=== PATIENT | female | born 1950 | race Caucasian/White ===

== ENCOUNTER → 2016-10-21 | Outpatient (CLI) | payer MEDICARE, OTHER ==
--- NOTE | 2016-10-22 03:56 | REP ---
Clinical: Acute on chronic back pain. Technique: AP, lateral, bilateral oblique, and coned-down views. Findings: Chronic dextroconvex scoliosis and advanced degenerative disc osteophyte complexes are noted predominately along the concave side of the lumbar spine with osteophytosis, endplate sclerosis and disc space narrowing. No obvious acute fracture / compression injury. Impression: Chronic dextroconvex scoliosis and advanced multilevel degenerative changes. Signed by Nabor Carrillo MD 10/22/2016 03:47 A
== END ==
LOC: M LRY 15:17
PROVIDERS: ATTEND Family Medicine
DX: M41.86 Other forms of scoliosis, lumbar region (principal); M51.86 Other intervertebral disc disorders, lumbar region; Z23 Encounter for immunization
CPT/HCPCS: 72110; 90670; 90686; G0008; G0009; G0463

== ENCOUNTER → 2016-10-24 | Outpatient (REF) | payer MEDICARE, OTHER ==
[2016-10-24 19:47] LABS: ANION GAP 10 MEQ/L (8-16); BLOOD UREA NITROGEN 14 MG/DL (7-18); CALCIUM LEVEL 9.5 MG/DL (8.8-10.2); CARBON DIOXIDE LEVEL 25 MEQ/L (21-32); CHLORIDE LEVEL 108 MEQ/L (98-107); CHOLESTEROL LEVEL 155 MG/DL (<200); CREATININE FOR GFR 0.86 MG/DL (0.55-1.02); FREE T4 1.33 NG/DL (0.76-1.46); GLOMERULAR FILTRATION RATE > 60.0 (>45); GLUCOSE, FASTING 98 MG/DL (80-110); POTASSIUM SERUM 4.4 MEQ/L (3.5-5.1); SODIUM LEVEL 143 MEQ/L (136-145); TRIGLYCERIDES LEVEL 69 MG/DL (<150)
== END ==
LOC: M SFHCLERA 09:04
PROVIDERS: ATTEND Family Medicine
DX: E11.9 Type 2 diabetes mellitus without complications (principal); E03.9 Hypothyroidism, unspecified; E78.00 Pure hypercholesterolemia, unspecified

== ENCOUNTER → 2017-04-15 | Outpatient (CLI) | payer MEDICARE, OTHER ==
--- NOTE | 2017-04-15 13:41 | REPMRS ---
Patient History The patient states she had a clinical breast exam in April 2017. The patient states she had a clinical breast exam in April 2017.Patient is postmenopausal. Family history of colorectal cancer in father at age 86 and breast cancer in mother at age 55. Benign core biopsy of the left breast. Took hormonal contraceptives for 4 years. Digital Mammo Screening Bilat: April 15, 2017 - Exam #: [id number] Bilateral CC and MLO view(s) were taken. Technologist: Radha Archibald, Technologist Prior study comparison: March 18, 2016, digital woman screen mammo, performed at [facility]. March 27, 2014, bilateral bilat screen digital mammo, performed at [facility] ([facility]). March 14, 2013, bilateral bilat screen digital mammo, performed at [facility] ([facility]). FINDINGS: There are scattered fibroglandular densities. There is a biopsy marker clip in the left breast again noted unchanged. There has been no change in the appearance of the mammogram from the prior studies. There is a mild amount of scattered fibroglandular density which is fairly symmetric. There is no interval development of dominant mass, architectural distortion, or clustered microcalcification suggestive of malignancy. ASSESSMENT: BI-RADS/ACR category 2 mammogram. Benign finding(s). Recommendation Routine screening mammogram in 1 year (for women over age 40). This mammogram was interpreted with the aid of an FDA-approved computer-aided dectection system. Electronically Signed By: Reza Bright MD 04/15/17 [id number]
== END ==
LOC: M RAD 11:57
PROVIDERS: ATTEND Obstetrics & Gynecology
DX: Z12.31 Encounter for screening mammogram for malignant neoplasm of breast (principal)

== ENCOUNTER → 2017-04-29 | Outpatient (CLI) | payer MEDICARE, OTHER ==
--- NOTE | 2017-05-13 09:55 | DEXA ---
AP SPINE L1 - L4 1.249 0.4 2.0 LT FEMUR TOTAL 0.712 -2.3 -1.1 RT FEMUR TOTAL 0.780 -1.8 -0.6 TOTAL BODY TOTAL OTHER % COMMENTS: Normal bone densitometry of the spine. There is low bone density of the right hip. There is osteoporosis of the left hip. The density of the spine has increased 13.0% since the initial exam on 08/2006. The spine density has increased 1.1% since the most recent exam on 03/2014. The density of the left hip has decreased 9.4% since the initial exam on 08/2006. The density of the left hip has decreased 7.9% since the most recent exam on 2013. The density of the right hip has decreased 5.0% since initial exam on 08/2006. The density of the right hip has increased 3.4% since the most recent exam on 2013. FOLLOW-UP: Recommendation for the next bone density exam: 2 years. ERIK
== END ==
LOC: M WHC 09:01
PROVIDERS: ATTEND Obstetrics & Gynecology
DX: M84.80 Other disorders of continuity of bone, unspecified site (principal); N95.9 Unspecified menopausal and perimenopausal disorder; M81.0 Age-related osteoporosis without current pathological fracture

== ENCOUNTER → 2017-09-13 | Outpatient (REF) | payer MEDICARE, OTHER ==
[2017-09-13 17:23] LABS: ALBUMIN 4.3 GM/DL (3.2-5.2); ALBUMIN/GLOBULIN RATIO 1.48 (1.00-1.93); ALKALINE PHOSPHATASE 50 U/L (45-117); ALT/SGPT 15 U/L (12-78); ANION GAP 6 MEQ/L (8-16); AST/SGOT 11 U/L (7-37); BILIRUBIN,TOTAL 0.4 MG/DL (0.2-1.0); BLOOD UREA NITROGEN 18 MG/DL (7-18); CALCIUM LEVEL 9.2 MG/DL (8.8-10.2); CARBON DIOXIDE LEVEL 27 MEQ/L (21-32); CHLORIDE LEVEL 109 MEQ/L (98-107); CREATININE FOR GFR 0.77 MG/DL (0.55-1.30); GLOMERULAR FILTRATION RATE > 60.0 (>45); GLUCOSE, FASTING 88 MG/DL (70-100); POTASSIUM SERUM 4.5 MEQ/L (3.5-5.1); SODIUM LEVEL 142 MEQ/L (136-145); THYROID STIMULATING HORMONE 0.857 uIU/ML (0.358-3.740); TOTAL PROTEIN 7.2 GM/DL (6.4-8.2)
[2017-09-13 19:43] LABS: MALB URINE SIEMENS 22.9 MG/L; MAU/CREAT RATIO 60.2 MCG/MG (0.0-30.0)
[2017-09-13 21:33] LABS: ESTIMATED AVERAGE GLUCOSE 157 MG/DL (60-110); HEMOGLOBIN A1c 7.1 %
== END ==
LOC: M SFHCLERA 12:17
DX: E03.9 Hypothyroidism, unspecified (principal); E11.9 Type 2 diabetes mellitus without complications; I10 Essential (primary) hypertension; Z23 Encounter for immunization
CPT/HCPCS: 84443

== ENCOUNTER → 2017-10-14 | Outpatient (CLI) | payer MEDICARE, OTHER | LOC: M LRY 13:23 | DX: J06.9 Acute upper respiratory infection, unspecified (principal) ==

== ENCOUNTER → 2017-10-19 | Outpatient (CLI) | payer MEDICARE, OTHER | LOC: M RAD 07:05 | DX: R93.6 Abnormal findings on diagnostic imaging of limbs (principal) | CPT/HCPCS: 93971 ==

== ENCOUNTER → 2018-08-27 | Outpatient (REF) | payer MEDICARE, OTHER ==
[2018-08-27 17:24] LABS: HEMOGLOBIN A1c 6.6 %
== END ==
LOC: M SFHCLERA 09:26
PROVIDERS: ATTEND Family Medicine
DX: E11.9 Type 2 diabetes mellitus without complications (principal)

== ENCOUNTER 2018-11-08 09:20 | Day surgery (SDC) | payer MEDICARE, OTHER ==
[~2018-11-08] VITALS: Ht 156.8 cm; Wt 52.6 kg
[~2018-11-08 09:20] MED LIST: ASPI81TA85 PO; FENO145T13 PO; LISI-542 PO; METF10004 PO; SIMV40TA2 PO; SYNT100T PO
[2018-11-08] MEDS ORDERED: NS 1,000 ML IV ONE (10:45)
[2018-11-08] MEDS ORDERED: LIDOCAINE 2% INJ 100 MG/5 ML SDV (FOR ANES.) As Ordered ONE (11:37)
[2018-11-08] MEDS ORDERED: PROPOFOL 200 MG/20 ML VIAL As Ordered ONE ×2 (11:37→11:47)
--- NOTE | 2018-11-08 11:57 | ROOR ---
Patient Name: Trista Garcia Procedure Date: 11/08/2018 11:25 AM Date of : 1950 Age: 68 Room: [facility] Gender: Female Note Status: Finalized Procedure: Colonoscopy Indications: High risk colon cancer surveillance: Personal history of colonic polyps, Last colonoscopy: October 2013 Providers: Ervin SIU MD Referring MD: Pretty MACK MD Requesting Provider: Medicines: Monitored Anesthesia Care Complications: No immediate complications. Procedure: Pre-Anesthesia Assessment: - The heart rate, respiratory rate, oxygen saturations, blood pressure, adequacy of pulmonary ventilation, and response to care were monitored throughout the procedure. The Colonoscope was introduced through the anus and advanced to the terminal ileum, with identification of the appendiceal orifice and IC valve. The colonoscopy was performed without difficulty. The patient tolerated the procedure well. The quality of the bowel preparation was good. Findings: The perianal and digital rectal examinations were normal. An ulcerated non-obstructing small mass was found in the proximal ascending colon. The mass measured one cm in length. In addition, its diameter measured ten mm. This was biopsied with a cold forceps for histology. The exam was otherwise without abnormality on direct and retroflexion views. Impression: - A 1 cm flat, centrally depressed ulcerated mass/polyp, in the proximal ascending colon (within 2 cm of ileocecal valve). Biopsied. - The examination was otherwise normal on direct and retroflexion views. Recommendation: - Await pathology results. - Telephone endoscopist for pathology results in 2 weeks. - If the pathology report reveals adenomatous/malignant tissue, then refer to a surgeon. - If the pathology report reveals no adenomatous tissue, then repeat the colonoscopy to check healing in 4 months. Ervin Siu MD Ervin SIU MD 11/08/2018 11:57:27 AM Electronically signed by Ervin SIU MD Number of Addenda: 0 Note Initiated On: 11/08/2018 11:25 AM Estimated Blood Loss: Estimated blood loss: none.
[2018-11-08 12:20] VITALS: BP 140/76
== END 2018-11-08 12:29 | disposition home or self-care (01) ==
LOC: M OPP 09:20
PROVIDERS: ATTEND Internal Medicine Gastroenterology
DX: C18.2 Malignant neoplasm of ascending colon (principal); Z86.010 Personal history of colon polyps

== ENCOUNTER → 2018-11-17 | Outpatient (REF) | payer MEDICARE, OTHER ==
[~2018-11-17] MED LIST changes: +PERCOCET PO
[2018-11-17 11:58] LABS: CHOLESTEROL LEVEL 154 MG/DL (<200); CHOLESTEROL RISK RATIO 2.905 (<5); FREE T4 1.39 NG/DL (0.76-1.46); HDL CHOLESTEROL 53 MG/DL (>40); LDL CHOLESTEROL 84 MG/DL (<100); NON-HDL-C 101 MG/DL; TRIGLYCERIDES LEVEL 86 MG/DL (<150)
[2018-11-17 12:24] LABS: HEMOGLOBIN A1c 6.5 %
[2018-11-17 12:25] LABS: CREATININE, URINE 84.5 MG/DL; MALB URINE SIEMENS 22.4 MG/L; MAU/CREAT RATIO 26.5 MCG/MG (0.0-30.0)
[2018-11-18 10:15] LABS: BLOOD UREA NITROGEN 15 MG/DL (7-18); CALCIUM LEVEL 9.3 MG/DL (8.8-10.2); CARBON DIOXIDE LEVEL 28 MEQ/L (21-32); CHLORIDE LEVEL 109 MEQ/L (98-107); CREATININE FOR GFR 0.78 MG/DL (0.55-1.30); GLOMERULAR FILTRATION RATE > 60.0 (>45); GLUCOSE, FASTING 94 MG/DL (70-100); POTASSIUM SERUM 4.7 MEQ/L (3.5-5.1); SODIUM LEVEL 143 MEQ/L (136-145)
== END ==
LOC: M SFHCLERA 07:52
PROVIDERS: ATTEND Family Medicine
DX: E03.9 Hypothyroidism, unspecified (principal); E11.9 Type 2 diabetes mellitus without complications
CPT/HCPCS: 80048; 80061; 82043; 83036; 84439; 84443; 90471; 90732; 93005; G0463

== ENCOUNTER → 2018-11-19 | Outpatient (CLI) | payer MEDICARE, OTHER ==
[~2018-11-19] MED LIST changes: -PERCOCET PO
[2018-11-19 12:32] LABS: BLOOD UREA NITROGEN 18 MG/DL (7-18); GLOMERULAR FILTRATION RATE > 60.0 (>45)
== END ==
LOC: M LRY 09:50
PROVIDERS: ATTEND Surgery
DX: C18.2 Malignant neoplasm of ascending colon (principal)

== ENCOUNTER → 2018-11-22 | Outpatient (CLI) | payer MEDICARE, OTHER ==
[~2018-11-22] MED LIST changes: +GASTROGRAFIN SOLUTION 30ML (Q9963) As Ordered ONE; +ISOVUE-370 76% 100ML VIAL (Q9967) As Ordered ONE
--- NOTE | 2018-11-23 09:42 | REP ---
CT of the abdomen pelvis without and with IV contrast, and with bowel contrast: After IV contrast scanning is performed initially during the portal venous phase of enhancement and again during the delayed equilibrium phase of enhancement. There are no comparison studies. The visualized lung perez are unremarkable. The hepatic parenchyma is homogeneous on all phases of the study. No hepatic metastases are identified. There are surgical clips in the gallbladder fossa. The pancreas, spleen, adrenals, kidneys and abdominal aorta are unremarkable. There is no periaortic adenopathy or mass. There is no mesenteric adenopathy or ascites. There is no bowel distension. There is no mass, ascites or adenopathy. 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 Pelvis: The patient reportedly has an appendectomy. The pelvic bowel loops are unremarkable. The bladder is unremarkable. Uterus and adnexa are unremarkable. There is no pelvic adenopathy or ascites. Impression: Cholecystectomy and appendectomy. No adenopathy, mass or ascites. 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 Otherwise, essentially negative CT of the abdomen and pelvis. Electronically Signed by Renato Kumar MD 11/23/2018 09:34 A
== END ==
LOC: M RAD 14:50
PROVIDERS: ATTEND Surgery
DX: C18.9 Malignant neoplasm of colon, unspecified (principal)
CPT/HCPCS: 74178; Q9963; Q9967

== ENCOUNTER 2018-11-25 06:06 | Inpatient (IN) | payer MEDICARE, OTHER ==
[2018-11-25] VITALS (8 sets, daily range): BP systolic 101–135; BP diastolic 55–68
[~2018-11-25] VITALS: Ht 157.5 cm; Wt 119.5 kg
[~2018-11-25 06:06] MED LIST changes: -GASTROGRAFIN SOLUTION 30ML (Q9963) As Ordered ONE; -ISOVUE-370 76% 100ML VIAL (Q9967) As Ordered ONE
[2018-11-25] MEDS ORDERED: fentaNYL 100 MCG/2 ML INJECTION (J3010) As Ordered ONE (06:40)
[2018-11-25] MEDS ORDERED: LIDOCAINE 2% INJ 100 MG/5 ML SDV (FOR ANES.) As Ordered ONE ×2 (06:40→06:41)
[2018-11-25] MEDS ORDERED: PROPOFOL 200 MG/20 ML VIAL As Ordered ONE ×2 (06:40→09:38)
[2018-11-25] MEDS ORDERED: MIDAZOLAM INJ 5 MG/ML VIAL (J2250) As Ordered ONE (06:40)
[2018-11-25] MEDS ORDERED: dexameTHASONE 4 MG/ML 1ML VIAL (J1100) As Ordered ONE (06:41)
[2018-11-25] MEDS ORDERED: SUGAMMADEX SODIUM 500 MG/5 ML VIAL (BRIDION) As Ordered ONE (06:41)
[2018-11-25] MEDS ORDERED: ACETAMINOPHEN 1000MG 100ML IV BTL (OFIRMEV) (J0131 PER 10MG) As Ordered ONE (06:41)
[2018-11-25] MEDS ORDERED: KETOROLAC 60 MG/2 ML VIAL (J1885) As Ordered ONE (06:41)
[2018-11-25] MEDS ORDERED: GLYCOPYRROLATE INJ 0.2 MG/ML 2 ML VIAL As Ordered ONE (06:41)
[2018-11-25] MEDS ORDERED: ONDANSETRON 4MG/2ML VIAL (J2405) As Ordered ONE (06:41)
[2018-11-25] MEDS ORDERED: KETAMINE HCL 200 MG/20 ML VIAL As Ordered ONE (06:42)
[2018-11-25] MEDS ORDERED: METHOCARBAMOL 1,000 MG/10 ML VIAL (J2800) As Ordered ONE (06:44)
[2018-11-25] MEDS ORDERED: ROCURONIUM BROMIDE 50 MG/5 ML VIAL As Ordered ONE (06:48)
[2018-11-25] MEDS ORDERED: cefoTEtan INJ 1GM VIAL (S0074 PER 500MG) As Ordered ONE (06:51)
[2018-11-25] MEDS ORDERED: CEFOTETAN DISODIUM IV ONE (07:00)
[2018-11-25] MEDS ORDERED: LR 1,000 ML IV ONE (07:00)
[2018-11-25] MEDS ORDERED: D5W IV ONE (07:00)
[2018-11-25] MEDS ORDERED: FAMOTIDINE IV BAG 20 MG in APPROPRIATE DILUENT 1 EA IV ONE (07:10)
[2018-11-25] MEDS ORDERED: BUPIVACAINE/EPIN 0.25% 30 ML VIAL As Ordered ONE (07:13)
[2018-11-25] MEDS ORDERED: ONDANSETRON 4MG/2ML VIAL (J2405) IV PRN ×2 (11:15→12:00)
[2018-11-25] MEDS ORDERED: ACETAMINOPHEN TAB 650MG DOSE (2X325MG) PO PRN (11:15)
[2018-11-25] MEDS ORDERED: MORPHINE 4 MG/ML 1ML VIAL/SYRINGE (J2270) IV PRN ×2 (11:15→11:30)
[2018-11-25] MEDS ORDERED: NORCO, ANEXSIA 5/325MG TABLET (HYDROcodone/ACETAMINOPHEN) PO PRN ×2 (11:15→11:30)
[2018-11-25] MEDS: KCL 20MEQ IN D5/0.45NS 1000ML 1,000 ML IV SCH ×2 (11:20→18:09)
[2018-11-25] MEDS: fentaNYL 100 MCG/2 ML INJECTION (J3010) IV PRN ×2 (11:51→12:30)
[2018-11-25] MEDS ORDERED: PHENYLephrine HCL 500 MCG/5 ML (100MCG/ML) SYRINGE (J2370) IV PRN (12:00)
[2018-11-25] MEDS ORDERED: LR 500 ML IV ONE (12:00)
[2018-11-25] MEDS ORDERED: oxyCODONE 5MG TAB PO PRN (13:00)
[2018-11-25] MEDS ORDERED: PERCOCET 5MG/325MG TAB PO ONE (14:30)
[2018-11-25] MEDS: FENOFIBRATE 145 MG TAB (TRICOR) PO SCH (14:53)
[2018-11-25] MEDS: PANTOPRAZOLE 40MG TAB (PROTONIX) PO SCH (14:53)
[2018-11-25] MEDS: SENOKOT S TAB PO SCH ×2 (14:53→21:58)
[2018-11-25] MEDS: SIMVASTATIN 40 MG TAB PO SCH (14:53)
[2018-11-25] MEDS: LISINOPRIL 5 MG TAB PO SCH (14:54)
[2018-11-25] MEDS: LEVOTHYROXINE 100MCG TABLET (0.1MG) PO SCH (14:54)
[2018-11-25] MEDS: KETOROLAC 30 MG/ML VIAL (J1885) IV PRN (18:10)
[2018-11-25] MEDS: ENOXAPARIN 40 MG/0.4 ML SYRINGE (J1650) SC SCH (21:58)
[2018-11-26] MEDS: KCL 20MEQ IN D5/0.45NS 1000ML 1,000 ML IV SCH ×2 (01:34→09:48)
[2018-11-26] MEDS: PERCOCET 5MG/325MG TAB PO PRN ×2 (01:34→11:23)
[2018-11-26 02:00] VITALS: BP 106/53
[2018-11-26] MEDS: LEVOTHYROXINE 100MCG TABLET (0.1MG) PO SCH (05:42)
[2018-11-26] MEDS: KETOROLAC 30 MG/ML VIAL (J1885) IV PRN ×2 (05:43→21:11)
[2018-11-26 06:00] VITALS: BP 101/53
[2018-11-26 06:40] LABS: HEMATOCRIT 33.4 % (36.0-47.0); HEMOGLOBIN 11.1 g/dl (12.0-15.5); MEAN CORPUSCULAR HEMOGLOBIN 30.5 pg (27.0-33.0); MEAN CORPUSCULAR HGB CONC 33.2 g/dl (32.0-36.5); MEAN CORPUSCULAR VOLUME 91.8 fl (80.0-96.0); PLATELET COUNT, AUTOMATED 277 10^3/uL (150-450); RED BLOOD COUNT 3.64 10^6/uL (4.00-5.40)
[2018-11-26 07:07] LABS: BLOOD UREA NITROGEN 8 MG/DL (7-18); CARBON DIOXIDE LEVEL 24 MEQ/L (21-32); CHLORIDE LEVEL 107 MEQ/L (98-107); CREATININE FOR GFR 0.74 MG/DL (0.55-1.30); GLOMERULAR FILTRATION RATE > 60.0 (>45); GLUCOSE, FASTING 157 MG/DL (70-100); POTASSIUM SERUM 4.7 MEQ/L (3.5-5.1); SODIUM LEVEL 137 MEQ/L (136-145)
[2018-11-26] MEDS: metFORMIN (GLUCOPHAGE) 1000 MG TABLET PO SCH ×2 (08:12→17:40)
[2018-11-26] MEDS: SIMVASTATIN 40 MG TAB PO SCH (08:12)
[2018-11-26] MEDS: PANTOPRAZOLE 40MG TAB (PROTONIX) PO SCH (08:12)
[2018-11-26] MEDS: FENOFIBRATE 145 MG TAB (TRICOR) PO SCH (08:12)
[2018-11-26] MEDS: SENOKOT S TAB PO SCH ×2 (08:13→21:10)
[2018-11-26] MEDS: LISINOPRIL 5 MG TAB PO SCH (08:14)
[2018-11-26 10:00] VITALS: BP 106/62
--- NOTE | 2018-11-26 11:05 | RO ---
DATE OF PROCEDURE: 11/25/2018 PREOPERATIVE DIAGNOSIS: Right colon cancer. POSTOPERATIVE DIAGNOSIS: Right colon cancer. PROCEDURE: Robotic-assisted right hemicolectomy. SURGEON: Dr. Renato Underwood BINDERY CUTTER OPERATOR: Loren Garrison ANESTHESIA: General. ESTIMATED BLOOD LOSS: 15 mL. COMPLICATIONS: None. INDICATIONS FOR PROCEDURE: The patient is a 68-year-old female, presents with a right colon mass that was biopsied positive for adenocarcinoma by GI. Recommendation was to proceed with robotic resection. Risks and benefits of procedure not limited to but including bleeding, infection, hernia formation, damage to surrounding structures, need for further surgery were discussed in detail with the patient. Informed consent was obtained, procedure was planned. DESCRIPTION OF PROCEDURE: The patient brought back to operating room seven, after sufficient sedation, a Oconnor catheter was placed. Next, the abdomen was sterilely prepped and draped. A time-out was then done to confirm proper patient, proper procedure. Next, an 8 mm incision was made in the left upper quadrant, Veress needle was inserted, and the abdomen was insufflated to 15 mmHg. Next, an 8 mm robotic Optiview port was used to gain access to the abdomen. Once the abdomen was entered, another 8 mm port was placed in the right lower quadrant, another 8 mm port in the left mid upper abdomen, and another 12 mm robotic port inferior to the umbilicus in the midline. Once all of these robotic ports were placed, the robot was connected to the ports. Next, from the console, starting inferiorly at the cecum, the cecum was held superiorly. The peritoneal reflection inferior to the cecum and then laterally along the right abdomen was all taken down using a combination of blunt and sharp dissection. Once that was completed, I continued the dissection up around the hepatic flexure in between the liver and the transverse colon. There were multiple adhesions directly onto the liver bed secondary to previous cholecystectomy. These were all taken down using sharp dissection with cautery. Once this was all completed and everything was mobilized, I was able to identify the duodenum. I mobilized the transverse colon inferiorly and gently dissected in between the duodenum and the transverse colon. Once this was completed, I found the terminal ileum, dissected through the mesentery of the terminal ileum. Once that was completed, stapled across the terminal ileum using a blue load on the 45 mm stapler. Next, I continued the dissection through the mesentery, from there superiorly, using the vessel sealer on the robot, I was able to go through the ileocolic vessels, continued the dissection up to the hepatic flexure. Once it was completed, used another two stapler loads to transect the transverse colon, just past the hepatic flexure. Once the specimen was completely dissected free and stapled off, the transverse colon, the terminal ileum and the specimen were all grabbed with laparoscopic graspers. The robot was then undocked. The 12 mm site was enlarged to about 4-5 cm to allow for removal of the specimen and then brought out the two ends of the colon and the terminal ileum, stapled them [id number] with a RAMIREZ 75 stapler. Once the anastomosis was completed, I over sewed the corners with #2-0 silk sutures, placed them to seal over the anastomosis, placed the bag inside the abdomen, placed a #19 Belgian Joss drain next to it, brought the Joss drain out through the most inferior port site, then closed the fascia using #1 PDS, reapproximated the subcutaneous tissues using #0 Vicryl, and then stapled the rest of the incisions, thus ending procedure. The patient tolerated the procedure well and was sent to recovery room in stable condition.
--- NOTE | 2018-11-26 11:43 | IPN ---
DATE: 11/26/2018 HISTORY: Patient is a patient of Dr. Washington who is now 1 day postop from a laparoscopic right hemicolectomy for a malignancy. She has generally done well following surgery. She is tolerating clear liquids well. She reports having some flatus. She has a Oconnor catheter in place, which is draining clear urine. She has a drain in her lower abdomen. She denies any nausea or vomiting. Vital signs show that she has been afebrile since surgery with the exception of a brief temperature of 100.2 at 1630 hours on the . Her pulse is in the 50s to low 80s. Her blood pressure is good. Intake and output shows that yesterday she had 4400 in with 1300 recorded out. Her drain is recorded as having 60 mL out yesterday. PHYSICAL EXAMINATION: The patient is lying quietly in the hospital bed. She is alert, oriented and appears fairly comfortable. She does complain of some high epigastric discomfort. Heart exam shows a regular rhythm. The lungs are clear. The abdomen shows fairly active bowel sounds and her dressings are dry. Her low midline drain has some serosanguineous fluid in the bulb. Laboratory studies this morning show a white count of 13,000, hemoglobin of 11, hematocrit of 33 and platelet count of 277,000. Her chemistry profile shows a sodium of 137, potassium 4.7, chloride 107, CO2 of 24, BUN of 80, creatinine 0.7 and a glucose of 157. IMPRESSION: The patient is doing very well postop day 1 from her laparoscopic right hemicolectomy. PLAN: We will remove her Oconnor catheter and saline lock her IV. Her sequential compression hose will be discontinued as she will maintain the support hose and the Lovenox. She is encouraged to be up out of bed ambulating today at least three times. Her diet will be advanced to regular.
[2018-11-26 14:00] VITALS: BP 120/63
[2018-11-26 18:00] VITALS: BP 116/53
[2018-11-26] MEDS: ENOXAPARIN 40 MG/0.4 ML SYRINGE (J1650) SC SCH (21:10)
[2018-11-26 22:00] VITALS: BP 135/61
[2018-11-27] MEDS: PERCOCET 5MG/325MG TAB PO PRN ×3 (04:00→20:26)
[2018-11-27] MEDS: LEVOTHYROXINE 100MCG TABLET (0.1MG) PO SCH (05:35)
[2018-11-27 06:00] VITALS: BP 109/60
[2018-11-27] MEDS ORDERED: IBUPROFEN 400 MG TAB PO PRN (08:45)
[2018-11-27] MEDS: metFORMIN (GLUCOPHAGE) 1000 MG TABLET PO SCH ×2 (08:49→17:50)
[2018-11-27] MEDS: SIMVASTATIN 40 MG TAB PO SCH (08:49)
[2018-11-27] MEDS: FENOFIBRATE 145 MG TAB (TRICOR) PO SCH (08:49)
[2018-11-27] MEDS: PANTOPRAZOLE 40MG TAB (PROTONIX) PO SCH (08:49)
[2018-11-27] MEDS: LISINOPRIL 5 MG TAB PO SCH (08:49)
[2018-11-27] MEDS: SENOKOT S TAB PO SCH ×2 (08:49→20:25)
[2018-11-27 14:00] VITALS: BP 121/59
[2018-11-27] MEDS: ENOXAPARIN 40 MG/0.4 ML SYRINGE (J1650) SC SCH (20:25)
--- NOTE | 2018-11-27 21:31 | IPN ---
DATE: 11/27/2018 HISTORY: The patient is now postoperative day #2 from a right hemicolectomy by Dr. Underwood. She has a drain in her lower midabdomen. She was advanced to a regular diet yesterday. She reports that she has had much flatus but no bowel movement as of yet. She indicates that she is voiding well. She denies any nausea or vomiting. Vital signs show that she has been afebrile over the past 24 hours. Her pulse and blood pressure are good. Intake and output shows that yesterday she had 1840 in recorded with 610 recorded out. Her drain yesterday had 235 mL of fluid. This morning her drain has 90 mL recorded out. PHYSICAL EXAMINATION: The patient is lying quietly in the hospital bed. She is alert and oriented. She is complaining of some discomfort actually in her back and neck, reporting that she feels stiff from lying in bed. Heart exam shows a regular rate and rhythm. The lungs are clear. The abdomen is flat. Her dressings are dry. The drain has some serosanguineous fluid in the bulb. She has active bowel sounds. IMPRESSION: The patient is doing well now postoperative day #2 from her laparoscopic right hemicolectomy. She is on a regular diet and tolerating it well but without any bowel function yet. PLAN: I will continue her drain for now given the amount of output. She will continue her regular diet and I encouraged her to be out of bed. She may be ready for discharge in the next 1-2 days.
[2018-11-27 22:00] VITALS: BP 125/61
[2018-11-28] MEDS: LEVOTHYROXINE 100MCG TABLET (0.1MG) PO SCH (05:38)
[2018-11-28 06:00] VITALS: BP 120/52
[2018-11-28 07:08] LABS: HEMATOCRIT 34.1 % (36.0-47.0); HEMOGLOBIN 11.3 g/dl (12.0-15.5); MEAN CORPUSCULAR HEMOGLOBIN 29.8 pg (27.0-33.0); MEAN CORPUSCULAR HGB CONC 33.1 g/dl (32.0-36.5); PLATELET COUNT, AUTOMATED 235 10^3/uL (150-450); RED BLOOD COUNT 3.79 10^6/uL (4.00-5.40); WHITE BLOOD COUNT 13.7 10^3/uL (4.0-10.0)
[2018-11-28 07:36] LABS: BLOOD UREA NITROGEN 9 MG/DL (7-18); CALCIUM LEVEL 8.5 MG/DL (8.8-10.2); CARBON DIOXIDE LEVEL 24 MEQ/L (21-32); CHLORIDE LEVEL 106 MEQ/L (98-107); CREATININE FOR GFR 0.65 MG/DL (0.55-1.30); GLOMERULAR FILTRATION RATE > 60.0 (>45); GLUCOSE, FASTING 94 MG/DL (70-100); POTASSIUM SERUM 3.3 MEQ/L (3.5-5.1); SODIUM LEVEL 138 MEQ/L (136-145)
[2018-11-28] MEDS ORDERED: POTASSIUM CHLORIDE 10 MEQ SR TABLET PO ONE (08:15)
[2018-11-28] MEDS: PANTOPRAZOLE 40MG TAB (PROTONIX) PO SCH (09:11)
[2018-11-28] MEDS: SENOKOT S TAB PO SCH (09:11)
[2018-11-28] MEDS: SIMVASTATIN 40 MG TAB PO SCH (09:11)
[2018-11-28] MEDS: FENOFIBRATE 145 MG TAB (TRICOR) PO SCH (09:11)
[2018-11-28] MEDS: metFORMIN (GLUCOPHAGE) 1000 MG TABLET PO SCH (09:12)
[2018-11-28 09:15] VITALS: BP 122/60
[2018-11-28] MEDS: LISINOPRIL 5 MG TAB PO SCH (09:15)
[2018-11-28] MEDS ORDERED: PERCOCET PO (11:31)
[2018-11-28] MEDS: PERCOCET 5MG/325MG TAB PO PRN (11:44)
--- NOTE | 2018-11-28 11:48 | IPN ---
DATE: 11/28/2018 SUBJECTIVE: The patient is seen at bedside. She states that she is passing a lot of flatus, however has not had a bowel movement. Her pain is not well-controlled. She had some nausea yesterday morning at breakfast, and had one episode of vomiting, however, was able to have crackers throughout yesterday afternoon. She states that she is still voiding well. Patient has been afebrile overnight and has had no acute events overnight. OBJECTIVE: PHYSICAL EXAMINATION VITALS: Temperature 96.5, pulse 87 and regular, respiratory rate 17, blood pressure 120/52, pulse ox is 91% on room air. GENERAL: The patient is awake, alert, laying quietly in bed. She is in no acute distress. HEART: Regular rate and rhythm. No murmurs, gallops or rubs. LUNGS: Clear to auscultation bilaterally. No wheezes, rhonchi or rales. ABDOMEN: Flat, incisions are dry and intact and without signs of infection. She has some serosanguineous fluid in the bulb of her Jonatan-Mcconnell (SIERRA) drain. The patient has positive bowel sounds. LABORATORY DATA: CBC: WBC 13.7, hemoglobin 11.3, hematocrit 34.1, platelets 235. Chemistry: Sodium 138, potassium 3.3, chloride 106, carbon dioxide 24, anion gap 8, BUN 9, creatinine 0.65, fasting glucose 94, calcium 8.5. IMPRESSION: The patient is doing well on posted postop day #3 from a laparoscopic right colectomy. She is on a regular diet, but has still had a bowel movements. She continues to pass flatus. PLAN: SIERRA drain has been removed. She may continue regular diet. She is encouraged to ambulate. We are still awaiting pathology. If she has a bowel movement today, she will be able to be discharged. My faculty preceptor for this patient encounter was physically present during the encounter and was fully available. All aspects of the patient interview, examination, medical decision making process, and medical care plan development were reviewed and approved by the faculty preceptor. The faculty preceptor is aware and concurs with the plan as stated in the body of this note and will attest to such by his/her co-signature.
== END 2018-11-28 13:30 | disposition home health service (06) | DRG 331 ==
LOC: M OR 06:06 → M MSPAV 13:32
PROVIDERS: ADMIT Surgery; ATTEND Surgery
PROC: 8E0W4CZ Robotic Assisted Procedure of Trunk Region, Percutaneous Endoscopic Approach (ICD-10-PCS; 2018-11-25)
PROC: 0DBK4ZZ Excision of Ascending Colon, Percutaneous Endoscopic Approach (ICD-10-PCS; principal; 2018-11-25 07:30)
DX: C18.2 Malignant neoplasm of ascending colon (principal); E11.9 Type 2 diabetes mellitus without complications; I10 Essential (primary) hypertension; E03.9 Hypothyroidism, unspecified; M85.80 Other specified disorders of bone density and structure, unspecified site; E78.5 Hyperlipidemia, unspecified; Z79.84 Long term (current) use of oral hypoglycemic drugs; Z79.899 Other long term (current) drug therapy; Z87.891 Personal history of nicotine dependence; Z88.5 Allergy status to narcotic agent

== ENCOUNTER → 2018-12-16 | Outpatient (CLI) | payer MEDICARE, OTHER ==
[~2018-12-16] MED LIST changes: +ISOVUE-370 76% 100ML VIAL (Q9967) As Ordered ONE; +PERCOCET PO
--- NOTE | 2018-12-16 11:08 | REP ---
REASON: History of colon carcinoma. No prior chest CTs for comparison. CONTRAST: 100 mL Isovue 370. There is no mediastinal or hilar adenopathy. There are no pleural or pericardial effusions. The imaged upper abdomen is within normal limits. The imaged osseous structures are within normal limits for the patient's age. Evaluation of the lung perez shows a peripherally calcifying, but centrally low density lesion in the right lower lobe medially measuring 1.2 cm. It appears relatively smoothly marginated. There is mild lung field hyperexpansion and there is cylindrical bronchiectasis throughout the lung perez. No spiculated parenchymal lesions are present. There is evidence of mild biapical pleuroparenchymal scarring. IMPRESSION: 1. Right lower lobe lung lesion as described above. Since it is peripherally calcified and smoothly marginated it is likely benign, however, if the patient has a diagnosis of adenocarcinoma of the mucinous type then that cancer has been known to cause calcific appearing metastasis. There is no revised Fleischner's Society criteria on the recommendation for followup of this type of lung lesion, however, given the patient's history I would recommend CT/PET at this time rather than tissue sampling. 2. Chronic lung field changes as described above. Electronically Signed by Elijah Ruffin DO 12/16/2018 02:41 P
== END ==
LOC: M RAD 08:53
PROVIDERS: ATTEND Internal Medicine Medical Oncology
DX: R91.8 Other nonspecific abnormal finding of lung field (principal); C18.9 Malignant neoplasm of colon, unspecified
CPT/HCPCS: 71260; Q9967

== ENCOUNTER → 2018-12-20 | Outpatient (CLI) | payer MEDICARE, OTHER ==
[~2018-12-20] MED LIST changes: +BUPIVACAINE HCL 0.5% 10 ML VIAL As Ordered ONE; -ISOVUE-370 76% 100ML VIAL (Q9967) As Ordered ONE; +LIDO2.5C15 TOP; +LIDOCAINE 2% MDV 20 ML VIAL As Ordered ONE; +ceFAZolin 1GM INJ (J0690 PER 500MG) As Ordered ONE
--- NOTE | 2018-12-20 14:12 | ROOPDOC ---
[facility] Report Of Operation Report of Operation DATE OF PROCEDURE: 12/20/2018 PREOPERATIVE DIAGNOSIS: Colon cancer requiring access for chemotherapy. POSTOPERATIVE DIAGNOSIS: Colon cancer requiring access for chemotherapy. PROCEDURE: Ultrasound guided right internal jugular vein cannulation. Fluoroscopic guided right internal jugular vein tunneled central venous catheter with subcutaneous port placement with placement of a power injectable [employer] [place] Power Port with 24 cm length catheter. SURGEON: Dr. Teri Cox M.D. THREAD MARKER: Salma Cho and Silvia Delgadillo ANESTHESIA: Local with 20 mL of 2% lidocaine mixed with 0.5% Marcaine. ANTIBIOTICS: Ancef 2 g FLUOROSCOPY TIME: 0.1 minutes. CONTRAST: None. ESTIMATED BLOOD LOSS: 15 mL. IV FLUID: 100 mL. COMPLICATIONS: None. DRAINS: None. SPECIMENS: None. IMPLANTS: Right internal jugular vein tunneled central venous catheter with subcutaneous port placement using a [employer] [place] Power Port which is power injectable. INDICATION: Patient is a 68-year-old female who underwent a right hemicolectomy due to right colon cancer and who now requires tunneled central venous catheter with subcutaneous tinnitus port placement for adjuvant chemotherapy. Patient will undergo a right tunneled central venous catheter placement with subcutaneous port. Procedure was described and explained to the patient in detail including drawing of pictures showing the procedure and anatomy associated with insertion of the tunneled central venous catheter was subcutaneous port. Risks, benefits, and alternative treatment options were discussed with the patient. Alternative treatment options included, but were not limited to, no intervention. Benefits included, but were not limited to, access for chemotherapy infusion centrally, avoiding recurrent venous cannulations , IV placements and sclerosis of peripheral veins. Risks included, but were not limited to, infection, bleeding, pneumothorax, hemothorax, possible need for further open surgical intervention, renal failure requiring hemodialysis, failure of the tunneled central venous catheter with subcutaneous port to function requiring evaluation, revision and/or replacement, adverse and/or allergic reaction to the sedation medications and/or local anesthetics, anesthetic and sedation complication, possible need for transfusion of blood products, allergic reaction and/or complication from the prepping and draping materials, bruising, scarring, cerebrovascular accident, myocardial infarction, pulmonary embolus, deep venous thrombosis, poor satisfaction, poor results, poor outcome, loss of limb and loss of life. Risks of not performing the port insertion included but were not limited to inability to gain access for chemotherapy, inability to gain access for blood draws and laboratory evaluation, sclerosis and thrombophlebitis of peripheral veins and pain associated with continued peripheral cannulations. Patient's questions were answered. Patient voices understanding of these risks, benefits, and alternative treatment options. Patient voices acceptance of the risks associated with placement of a central venous tunneled catheter with subcutaneous port placement and consents to proceed with tunneled central venous catheter with subcutaneous port placement. No guarantees or promises were made to the patient regarding the results or outcome of the procedure. DESCRIPTION OF PROCEDURE: Patient was taken to the angiography suite, placed supine on the angiography room table, and prepped and draped in a standard surgical fashion. A time-out was conducted by myself and the team members involved in the procedure, confirming the correct procedure, patient, and laterality. Ultrasound was then used to evaluate the right internal jugular vein, which was noted to be easily compressible, widely patent, and free of thrombus. Ultrasound was then used to guide cannulation of the right internal jugular vein with a micropuncture needle with real-time concurrent visualization of the entry of the needle into the right internal jugular vein with a hardcopy image preserved. The skin overlying the right internal jugular vein was anesthetized with 2% lidocaine mixed with 0.5% Marcaine prior to cannulation. Once the right internal jugular vein was cannulated, the micropuncture wire was advanced through the micropuncture needle, which was up-sized to a micropuncture sheath. A J wire was advanced through the micropuncture sheath. The right internal jugular vein was then dilated under fluoroscopic guidance, and a #8-[place] introducer sheath was positioned through the right internal jugular vein into the superior vena cava. The wire was removed, and the #8-[place] single lumen catheter, which had been tunneled from a puncture wound in the right chest and brought out at the puncture wound at the right internal jugular vein entry site, was advanced through the introducer sheath under fluoroscopic guidance. The introducer sheath was then removed, and the catheter was positioned with the tip in the superior vena cava/right atrial junction under fluoroscopic guidance. The catheter was cut to a length of 24 cm and attached to the port. A pocket was created in the right chest after anesthetizing the overlying tissue with 2% lidocaine mixed with 0.5% Marcaine. The port was placed in the pocket and cannulated using an access needle. The port was noted to aspirate and flush easily and then was flushed with heparinized saline. The incision in the chest was closed using # 4-0 Monocryl suture in inverted interrupted fashion. The puncture wound in the right neck was closed using a #4-0 Monocryl in inverted interrupted fashion. Steri-Strips and dressings were applied. Patient tolerated the procedure well. All instrument, sponge, and needle counts were correct at the end of the case. There were no complications. Dr. Cox was present for and directed the entire case. Patient was transferred to the recovery area and subsequently discharged in stable condition. The tunneled central venous catheter with subcutaneous port is stable for use for access. RADIOLOGIC SUPERVISION AND INTERPRETATION: The ultrasound showed the right internal jugular vein to be easily compressible, widely patent, and free of thrombus. Ultrasound was used to guide cannulation of the right internal jugular vein with real-time concurrent visualization of the entry of the needle into the right internal jugular vein. The right internal jugular vein was then dilated under fluoroscopic guidance with a #8-[place] introducer sheath placed under fluoroscopic guidance. The 8 [place] Island[place] single lumen catheter was advanced through the introducer sheath positioned with the tip in the superior vena/right atrial junction using fluoroscopic guidance with final fluoroscopic image showing the catheter and port to be in good position and good alignment with the tip in the superior vena cava/right atrial junction with no pneumo- or hemothorax noted. The tunneled central venous catheter with subcutaneous port is stable for use. Carlos Cox MD December 20, 2018 14:12
== END | disposition home or self-care (01) ==
LOC: M IRPRO 09:05
PROVIDERS: ATTEND Internal Medicine Medical Oncology
DX: C18.9 Malignant neoplasm of colon, unspecified (principal)
CPT/HCPCS: 36561; 76937; 77001; C1788; C1894; J0690

== ENCOUNTER → 2018-12-21 | Outpatient (CLI) | payer MEDICARE, OTHER ==
[~2018-12-21] MED LIST changes: -BUPIVACAINE HCL 0.5% 10 ML VIAL As Ordered ONE; -LIDOCAINE 2% MDV 20 ML VIAL As Ordered ONE; +PROHANCE 279.3MG/ML 5ML VIAL (A9576) As Ordered ONE; -ceFAZolin 1GM INJ (J0690 PER 500MG) As Ordered ONE
--- NOTE | 2018-12-21 13:07 | REP ---
MR BRAIN WITHOUT AND WITH CONTRAST: HISTORY: Colon carcinoma. CONTRAST: ProHance 16 mL. Scattered punctate areas of increased signal intensity on T2-weighted images are present in the periventricular and subcortical white matter and lana. This represents small vessel ischemic disease. There is no intraparenchymal hemorrhage infarct, mass, or midline shift. There is no abnormal enhancement. The ventricular system and cortical sulci are dilated consistent with minimal volume loss. There is no extracerebral collection. The sinuses are clear. IMPRESSION: 1. Minimal small vessel ischemic disease. 2. Minimal volume loss. Electronically Signed by Jasvir Villanueva MD 12/21/2018 01:10 P
== END ==
LOC: M RAD 10:57
PROVIDERS: ATTEND Internal Medicine Medical Oncology
DX: C18.9 Malignant neoplasm of colon, unspecified (principal); I67.82 Cerebral ischemia
CPT/HCPCS: 70553; A9576

== ENCOUNTER → 2018-12-28 | Outpatient (CLI) | payer MEDICARE, OTHER ==
[~2018-12-28] MED LIST changes: +ONDA8TAB8 PO; +PROC10TA4 PO; -PROHANCE 279.3MG/ML 5ML VIAL (A9576) As Ordered ONE
--- NOTE | 2018-12-29 15:10 | REP ---
HISTORY: History of colon carcinoma. Recent CT scan of the chest 12/16/2018 was reviewed. That examination showed a nodule in the right lung lower lobe. There are no prior CT/PET examinations for comparison. After the intravenous administration of 9.63 mCi of FDG-18 triplane whole body PET/CT was performed from the skull base to the midthigh. The nodule seen in the right lung lower lobe medially on the prior CT and on today's CT component of this PET CT is not hypermetabolic having maximal SUV values of 1.5. There is no abnormal hypermetabolic activity seen in the neck, chest, abdomen or pelvis. IMPRESSION: No abnormal hypermetabolic lung lesions. Findings as described above. Electronically Signed by Elijah Ruffin DO 12/29/2018 03:28 P
== END ==
LOC: M PLARAD 10:22
PROVIDERS: ATTEND Internal Medicine Medical Oncology
DX: R91.1 Solitary pulmonary nodule (principal)
CPT/HCPCS: 78815; A9552

== ENCOUNTER 2019-09-20 18:34 | Emergency (ER) | payer MEDICARE, OTHER ==
[~2019-09-20] VITALS: Ht 154.9 cm; Wt 58.7 kg
[~2019-09-20 18:34] MED LIST changes: -FENO145T13 PO; +FENO145T7 PO; -SIMV40TA2 PO; +SIMV40TA20 PO
[2019-09-20 20:10] LABS: BASO # 0.1 10^3/uL (0.0-0.2); BASO % 0.6 % (0.0-1.0); EOS # 0.6 10^3/uL (0.0-0.5); EOS % 4.1 % (0.0-3.0); HEMOGLOBIN 13.5 g/dl (12.0-15.5); LYMPH # 3.5 10^3/uL (1.5-5.0); MEAN CORPUSCULAR HEMOGLOBIN 30.1 pg (27.0-33.0); MEAN CORPUSCULAR HGB CONC 32.9 g/dl (32.0-36.5); MEAN CORPUSCULAR VOLUME 91.3 fl (80.0-96.0); MONO # 1.5 10^3/uL (0.0-0.8); MONO % 10.2 % (0.0-5.0); NEUTROPHILS # 8.7 10^3/uL (1.5-8.5); NEUTROPHILS % 60.5 % (36.0-66.0); PLATELET COUNT, AUTOMATED 309 10^3/uL (150-450); RED BLOOD COUNT 4.49 10^6/uL (4.00-5.40); WHITE BLOOD COUNT 14.4 10^3/uL (4.0-10.0)
[2019-09-20 20:29] LABS: BLOOD UREA NITROGEN 15 MG/DL (7-18); CALCIUM LEVEL 9.8 MG/DL (8.8-10.2); CARBON DIOXIDE LEVEL 26 MEQ/L (21-32); CHLORIDE LEVEL 106 MEQ/L (98-107); CREATININE FOR GFR 0.78 MG/DL (0.55-1.30); GLOMERULAR FILTRATION RATE > 60.0 (>45); GLUCOSE, FASTING 119 MG/DL (70-100); POTASSIUM SERUM 4.4 MEQ/L (3.5-5.1); SODIUM LEVEL 138 MEQ/L (136-145)
[2019-09-20 20:55] VITALS: BP 121/62
[2019-09-20] MEDS ORDERED: CIPR-249 PO (21:34)
[2019-09-20] MEDS ORDERED: CIPROFLOXACIN 500 MG TAB PO ONE (21:45)
[2019-10-03] MEDS ORDERED: LIDO2.5C15 TOP (14:53)
== END 2019-09-20 21:40 | disposition home or self-care (01) ==
LOC: M ED 18:34
DX: N39.0 Urinary tract infection, site not specified (principal); E11.9 Type 2 diabetes mellitus without complications; I10 Essential (primary) hypertension; E78.5 Hyperlipidemia, unspecified; Z79.899 Other long term (current) drug therapy; Z79.890 Hormone replacement therapy; Z79.82 Long term (current) use of aspirin; Z88.5 Allergy status to narcotic agent

== ENCOUNTER 2019-10-11 09:10 | Day surgery (SDC) | payer MEDICARE, OTHER ==
[~2019-10-11] VITALS: Ht 157.5 cm; Wt 56.6 kg
[~2019-10-11 09:10] MED LIST changes: +CIPR-249 PO; +NS 1,000 ML IV ONE
[2019-10-11] MEDS ORDERED: propofoL 200 MG/20 ML VIAL As Ordered ONE (09:56)
[2019-10-11] MEDS ORDERED: LIDOCAINE 2% INJ 100 MG/5 ML SDV (FOR ANES.) As Ordered ONE (09:56)
--- NOTE | 2019-10-11 11:03 | ROOR ---
Patient Name: Trista Garcia Procedure Date: 10/11/2019 10:48 AM Date of : 1950 Age: 69 Room: [facility] Gender: Female Note Status: Finalized Procedure: Colonoscopy Indications: High risk colon cancer surveillance: Personal history of colon cancer Providers: DO Sunday Cochran MD: Pretty Hung Md Requesting Provider: Medicines: Propofol per Anesthesia Complications: No immediate complications. Procedure: Pre-Anesthesia Assessment: - Prior to the procedure, a History and Physical was performed, and patient medications and allergies were reviewed. The patient is competent. The risks and benefits of the procedure and the sedation options and risks were discussed with the patient. All questions were answered and informed consent was obtained. Patient identification and proposed procedure were verified by the physician, the nurse, the anesthesiologist and the traffic signal technician in the endoscopy suite. Mental Status Examination: alert and oriented. Airway Examination: normal oropharyngeal airway and neck mobility. Respiratory Examination: clear to auscultation. CV Examination: normal. Prophylactic Antibiotics: The patient does not require prophylactic antibiotics. Prior Anticoagulants: The patient has taken no previous anticoagulant or antiplatelet agents. ASA Grade Assessment: III - A patient with severe systemic disease. After reviewing the risks and benefits, the patient was deemed in satisfactory condition to undergo the procedure. The anesthesia plan was to use monitored anesthesia care (MAC). Immediately prior to administration of medications, the patient was re-assessed for adequacy to receive sedatives. The heart rate, respiratory rate, oxygen saturations, blood pressure, adequacy of pulmonary ventilation, and response to care were monitored throughout the procedure. The physical status of the patient was re-assessed after the procedure. The Colonoscope was introduced through the anus and advanced to the ileocolonic anastomosis. The colonoscopy was performed without difficulty. The patient tolerated the procedure well. Findings: Internal hemorrhoids were found during retroflexion. The hemorrhoids were mild and Grade II (internal hemorrhoids that prolapse but reduce spontaneously). The exam was otherwise without abnormality on direct and retroflexion views. Impression: - Internal hemorrhoids. - The examination was otherwise normal on direct and retroflexion views. - No specimens collected. Recommendation: - Patient has a contact number available for emergencies. The signs and symptoms of potential delayed complications were discussed with the patient. Return to normal activities tomorrow. Written discharge instructions were provided to the patient. - Await pathology results. - Return to my office PRN. - Repeat colonoscopy in 1 year for surveillance. Renato Underwood DO 10/11/2019 11:02:31 AM Electronically signed by Renato Underwood DO Number of Addenda: 0 Note Initiated On: 10/11/2019 10:48 AM Estimated Blood Loss: Estimated blood loss: none.
[2019-10-11 11:25] VITALS: BP 118/58
== END 2019-10-11 11:36 | disposition home or self-care (01) ==
LOC: M OPP 09:10
PROVIDERS: ATTEND Surgery
DX: Z85.038 Personal history of other malignant neoplasm of large intestine (principal); K64.1 Second degree hemorrhoids; I10 Essential (primary) hypertension; E78.00 Pure hypercholesterolemia, unspecified; E11.9 Type 2 diabetes mellitus without complications; E03.9 Hypothyroidism, unspecified; Z88.5 Allergy status to narcotic agent; Z79.82 Long term (current) use of aspirin; Z79.84 Long term (current) use of oral hypoglycemic drugs; Z79.899 Other long term (current) drug therapy

== ENCOUNTER → 2019-10-13 | Outpatient (CLI) | payer MEDICARE, OTHER ==
[~2019-10-13] MED LIST changes: -NS 1,000 ML IV ONE
--- NOTE | 2019-10-13 13:10 | REP ---
LEFT FOURTH DIGIT: Four views of left fourth digit performed. There is no acute fracture or dislocation. Mild degenerative joint space narrowing is seen at the proximal and distal interphalangeal joints. IMPRESSION: Mild degenerative changes. Electronically Signed by Renato Matthews MD 10/17/2019 03:44 P
== END ==
LOC: M LRY 10:50
PROVIDERS: ATTEND Family Medicine
DX: M19.042 Primary osteoarthritis, left hand (principal); M79.645 Pain in left finger(s)
CPT/HCPCS: 73140; 87804; G0463

== ENCOUNTER → 2019-10-16 | Outpatient (REF) | payer MEDICARE, OTHER ==
[2019-10-16 11:51] LABS: CHOLESTEROL RISK RATIO 2.51 (<5)
[2019-10-16 12:29] LABS: MALB URINE SIEMENS 46.5 MG/L; MAU/CREAT RATIO 17.4 MCG/MG (0.0-30.0)
[2019-10-16 12:38] LABS: HEMOGLOBIN A1c 7.8 %
== END ==
LOC: M SFHCLERA 08:00
PROVIDERS: ATTEND Family Medicine
DX: E11.9 Type 2 diabetes mellitus without complications (principal)

== ENCOUNTER 2019-10-19 13:25 | Outpatient (RCR) | payer MEDICARE, OTHER | END 2019-11-07 | LOC: M OT 13:25 | PROVIDERS: ATTEND Family Medicine | DX: Z51.89 Encounter for other specified aftercare (principal); M79.645 Pain in left finger(s) ==

== ENCOUNTER → 2019-12-06 | Outpatient (CLI) | payer MEDICARE, OTHER ==
[~2019-12-06] MED LIST changes: +GASTROGRAFIN SOLUTION 30ML (Q9963) As Ordered ONE; +ISOVUE-370 76% 100ML VIAL As Ordered ONE
--- NOTE | 2019-12-06 14:24 | REP ---
CT CHEST WITH IV CONTRAST: HISTORY: Colon carcinoma. Comparison CT study is from December 16, 2018. CT CONTRAST DOSE: 100 mL of intravenous Isovue 370. CT FINDINGS: Preliminary digital rinkman radiographs are unremarkable. There is no evidence of pleural or pericardial effusion. Scattered small normal-sized stable mediastinal lymph nodes are seen. No adenopathy is noted. There has been no change in the size or appearance of the relatively low density well circumscribed right lower lobe pulmonary nodule located medially in the azygoesophageal recess of the right lower lobe. This measures 12 x 10 mm in greatest transverse dimension and is unchanged. No new pulmonary nodule is appreciated. There is no evidence of mass or pleural effusion. There is good opacification in the pulmonary arterial tree and the thoracic aorta. There is no evidence of aortic aneurysm or dissection. There is no CT evidence of pulmonary embolus. No bony destructive lesion is seen. A right-sided Fgklph-I-Wayq catheter is noted. IMPRESSION: Stable right lower lobe pulmonary nodule. No new nodule is seen. No acute cardiopulmonary disease. Electronically Signed by Isacc Bright MD 12/06/2019 03:07 P
--- NOTE | 2019-12-06 14:31 | REP ---
CT ABDOMEN AND PELVIS WITH IV AND ORAL CONTRAST: HISTORY: Colon carcinoma. Comparison PET/CT study December 28, 2018. Comparison CT abdomen and pelvis November 22, 2018. CT CONTRAST DOSE: 100 mL of intravenous Isovue [address] FINDINGS: There is moderate diffuse fatty infiltration of the liver. This is a little more prominent than on the prior study. No focal liver mass lesion is appreciated. The liver measures 18 cm in craniocaudal span in the midclavicular line and is considered at the upper range of normal in size. This is unchanged. The gallbladder is surgically absent. Right hemidiaphragm is somewhat elevated. No abnormality is noted in the pancreas. Normal adrenal glands are seen bilaterally. The kidneys enhance symmetrically are morphologically intact. There is a dextroconvex lumbar scoliotic curve again noted. The patient is status post partial right colectomy with an anastomosis in the right lower quadrant. There is no evidence of colonic mass lesion or obstruction. There is left colonic diverticulosis. No uterine or ovarian abnormality is seen. The urinary bladder is intact. No abdominal wall defect is observed. No retroperitoneal mass or adenopathy is seen. Normal caliber aorta. Bone window settings show no evidence of bony destructive lesion. IMPRESSION: Prominent size fatty replaced liver. No focal liver lesion. There is no evidence of abdominal mass or adenopathy. Electronically Signed by Isacc Bright MD 12/06/2019 03:08 P
== END ==
LOC: M RAD 11:07
PROVIDERS: ATTEND Internal Medicine Medical Oncology
DX: R91.1 Solitary pulmonary nodule (principal); C18.9 Malignant neoplasm of colon, unspecified; K76.0 Fatty (change of) liver, not elsewhere classified; Z90.49 Acquired absence of other specified parts of digestive tract; Z98.0 Intestinal bypass and anastomosis status; K57.30 Diverticulosis of large intestine without perforation or abscess without bleeding
CPT/HCPCS: 71260; 74177; J1642; Q9963; Q9967

== ENCOUNTER → 2019-12-19 | Outpatient (CLI) | payer MEDICARE, OTHER ==
[~2019-12-19] MED LIST changes: -GASTROGRAFIN SOLUTION 30ML (Q9963) As Ordered ONE; -ISOVUE-370 76% 100ML VIAL As Ordered ONE
--- NOTE | 2019-12-19 16:56 | REP ---
PET/CT: HISTORY: Restaging colon carcinoma. Status post right hemicolectomy on chemotherapy. 1.2 cm right lower lobe lung nodule. Prior smoking history. COMPARISONS: Comparison PET-CT study December 28, 2018. Comparison CT study of the chest, abdomen, pelvis December 06, 2019. TECHNIQUE: 51 minutes following the intravenous injection of a 8.23 mCi dose of F-18 FDG, three-dimensional PET scintigraphy is acquired from the skull base to the proximal thighs. Triplanar noncontrast CT scanning is acquired through the same anatomic range for attenuation correction, and image registration with scan parameters optimized to minimize radiation exposure to the patient. PET scintigraphy and CT datasets were fused and displayed on a workstation with multiplanar and projection display capability. PET/CT FINDINGS: The right lower lobe nodule noted previously is again seen, unchanged. Maximum standard uptake value within it is 1.90, previously 1.60. These values are not hypermetabolic. There is no hypermetabolic pulmonary parenchymal uptake. No new nodule is appreciated. There is no abnormal hypermetabolic hilar or mediastinal uptake. Head and neck soft tissues are unremarkable. In the abdomen and pelvis, there is no abnormal hepatic hypermetabolic uptake. No upper abdominal jessica hypermetabolic uptake is seen. Anastomotic suture is seen in the right colon as before. No abnormal abdominal or pelvic hypermetabolic uptake. IMPRESSION: The right lower lobe nodule is not hypermetabolic and is unchanged. No new focus of abnormal hypermetabolic uptake is seen. Electronically Signed by Isacc Bright MD 12/19/2019 05:00 P
== END ==
LOC: M PLARAD 12:26
PROVIDERS: ATTEND Internal Medicine Medical Oncology
DX: C18.2 Malignant neoplasm of ascending colon (principal); R91.1 Solitary pulmonary nodule
CPT/HCPCS: 78815; A9552

== ENCOUNTER → 2019-12-21 | Outpatient (CLI) | payer MEDICARE, OTHER ==
--- NOTE | 2019-12-21 17:02 | REP ---
ULTRASOUND RIGHT SHOULDER SOFT TISSUES: Real-time sonographic evaluation of right shoulder soft tissues performed for a palpable lump. This is reportedly overlying the right lateral clavicle region and possibly humeral head region. There is an oval elongated hypoechoic solid mass at that location. It measures 2.2 x 0.5 x 2.2 cm. It is well defined and appears encapsulated. 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 There is not significant hyperemia internally with Doppler evaluation. IMPRESSION: Oval solid mass overlying the region of the distal right clavicle, as discussed above. 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 Clinical correlation and followup recommended. If desired, this could be further evaluated with MRI. Electronically Signed by Renato Matthews MD 12/22/2019 09:54 A
== END ==
LOC: M RAD 15:19
PROVIDERS: ATTEND Internal Medicine Medical Oncology
DX: R22.31 Localized swelling, mass and lump, right upper limb (principal); C18.2 Malignant neoplasm of ascending colon

== ENCOUNTER → 2020-01-09 | Outpatient (CLI) | payer MEDICARE, OTHER ==
--- NOTE | 2020-01-09 15:49 | REPMRS ---
Patient History The patient states she has not had a clinical breast exam in over a year. Family history of breast cancer at age 55 in mother, colorectal cancer at age 86 in father. Benign core biopsy of the left breast. Took hormonal contraceptives for 4 years. 3D TOMOSYNTHESIS WAS PERFORMED. The Trey Ewing lifetime risk for breast cancer is 12.4%. VOLPARA DENSITY B. Digital Woman Screen Mammo: January 09, 2020 - Exam #: [id number] Bilateral CC and MLO view(s) were taken. Technologist: Radha Archibald, Technologist Prior study comparison: April 15, 2017, bilateral digital mammo screening bilat, performed at . March 18, 2016, digital woman screen mammo performed at [facility] [place]. FINDINGS: There are scattered fibroglandular densities. There has been no change in the appearance of the mammogram from the prior studies. There is a mild amount of residual fibroglandular tissue which is fairly symmetric. There is no interval development of dominant mass, architectural distortion, or clustered microcalcification suggestive of malignancy. Assessment: BI-RADS/ACR category 1 mammogram. Negative Mammogram. Recommendation Routine screening mammogram in 1 year (for women over age 40). This mammogram was interpreted with the aid of an FDA-approved computer-aided dectection system. Electronically Signed By: Renato Matthews MD 01/09/20 [id number]
== END ==
LOC: M WHC 13:46
PROVIDERS: ATTEND Family Medicine
DX: Z12.31 Encounter for screening mammogram for malignant neoplasm of breast (principal)

== ENCOUNTER → 2020-01-24 | Outpatient (REF) | payer MEDICARE, OTHER ==
[2020-01-24 16:45] LABS: HEMOGLOBIN A1c 8.3 %
== END ==
LOC: M SFHCLERA 16:05
PROVIDERS: ATTEND Family Medicine
DX: E11.9 Type 2 diabetes mellitus without complications (principal)

== ENCOUNTER → 2020-02-01 | Outpatient (REF) | payer MEDICARE, OTHER | LOC: M SFHCLERA 14:17 | PROVIDERS: ATTEND Family Medicine | DX: E03.9 Hypothyroidism, unspecified (principal) ==

== ENCOUNTER → 2020-03-07 | Outpatient (REF) | payer MEDICARE, OTHER ==
[~2020-03-07] MED LIST changes: -ASPI81TA85 PO; +ASPI81TA86 PO; +JANU100T PO
== END ==
LOC: M SFHCLERA 10:01
PROVIDERS: ATTEND Family Medicine
DX: R30.0 Dysuria (principal)

== ENCOUNTER → 2020-03-20 | Outpatient (REF) | payer MEDICARE, OTHER | LOC: M SFHCLERA 08:59 | PROVIDERS: ATTEND Family Medicine | DX: E03.9 Hypothyroidism, unspecified (principal) ==

== ENCOUNTER → 2020-04-25 | Outpatient (CLI) | payer MEDICARE, OTHER ==
[2020-04-25 15:25] LABS: HEMOGLOBIN A1c 7.3 %
== END ==
LOC: M WUC 09:13
PROVIDERS: ATTEND Family Medicine
DX: E11.9 Type 2 diabetes mellitus without complications (principal)

== ENCOUNTER 2020-09-11 11:24 | Emergency (ER) | payer MEDICARE, OTHER ==
[~2020-09-11] VITALS: Ht 154.9 cm; Wt 59.1 kg
[~2020-09-11 11:24] MED LIST changes: +ECOT81TA5 PO
--- NOTE | 2020-09-11 12:22 | REP ---
INDICATION: trauma, rolled ankle/foot. COMPARISON: None. TECHNIQUE: Four views of the right foot are presented. FINDINGS: Four views of the right foot demonstrate minimal diffuse osteopenia. No foot fracture is seen. There is lateral malleolar soft tissue swelling and aaa distal fibular fracture is suspected. No tarsal or metatarsal fracture is seen. Achilles and plantar calcaneal spurring is noted.. . No opaque foreign body noted. IMPRESSION: Suspect distal fibular fracture. Anterolateral soft tissue swelling. No tarsal or metatarsal fracture seen.. <Electronically signed by Reza Bright > 09/11/20 [id number]
--- NOTE | 2020-09-11 12:24 | REP ---
INDICATION: trauma, rolled ankle/foot. COMPARISON: None. TECHNIQUE: Three views. FINDINGS: Three views of the right tib fib demonstrate an obliquely oriented nondisplaced fracture through the distal fibular metaphysis with the overlying soft tissue swelling. Ankle mortise appears intact. No tibial fracture is seen. No proximal tibial or fibular fracture is noted.. No fracture or subluxation is seen. No opaque foreign body noted. IMPRESSION: Obliquely oriented nondisplaced fracture of the lateral malleolus with overlying soft tissue swelling. No other fracture seen. Consider ankle series.. <Electronically signed by Reza Bright > 09/11/20 [id number]
[2020-09-11 13:27] VITALS: BP 140/71
== END 2020-09-11 13:32 | disposition home or self-care (01) ==
LOC: M ED 11:24
DX: S82.64XA Nondisplaced fracture of lateral malleolus of right fibula, initial encounter for closed fracture (principal); X50.9XXA Other and unspecified overexertion or strenuous movements or postures, initial encounter; Y92.89 Other specified places as the place of occurrence of the external cause; Z79.899 Other long term (current) drug therapy; Z79.890 Hormone replacement therapy; Z79.82 Long term (current) use of aspirin; Z88.5 Allergy status to narcotic agent

== ENCOUNTER → 2020-11-01 | Outpatient (CLI) | payer MEDICARE, OTHER ==
[~2020-11-01] MED LIST changes: -LISI-542 PO; +LISI-898 PO
== END ==
LOC: M LABSMTC 10:49
PROVIDERS: ATTEND Anesthesiology
DX: Z01.812 Encounter for preprocedural laboratory examination (principal); Z20.822 Contact with and (suspected) exposure to COVID-19

== ENCOUNTER 2020-11-06 07:51 | Day surgery (SDC) | payer MEDICARE, OTHER ==
[~2020-11-06] VITALS: Ht 154.9 cm; Wt 57.6 kg
[~2020-11-06 07:51] MED LIST changes: +NS 1,000 ML IV ONE
[2020-11-06] MEDS ORDERED: propofoL 200 MG/20 ML VIAL As Ordered ONE ×2 (09:20→09:42)
--- NOTE | 2020-11-06 09:50 | ROOR ---
Patient Name: Trista Garcia Procedure Date: 11/06/2020 9:32 AM Date of : 1950 Age: 70 Room: [facility] Gender: Female Note Status: Finalized Procedure: Colonoscopy Indications: High risk colon cancer surveillance: Personal history of colon cancer Providers: DO Sunday Cochran MD: Pretty Hung Md Requesting Provider: Medicines: Propofol per Anesthesia Complications: No immediate complications. Procedure: Pre-Anesthesia Assessment: - Prior to the procedure, a History and Physical was performed, and patient medications and allergies were reviewed. The patient is competent. The risks and benefits of the procedure and the sedation options and risks were discussed with the patient. All questions were answered and informed consent was obtained. Patient identification and proposed procedure were verified by the physician, the nurse, the anesthesiologist and the pc network technician in the endoscopy suite. Mental Status Examination: alert and oriented. Airway Examination: normal oropharyngeal airway and neck mobility. Respiratory Examination: clear to auscultation. CV Examination: normal. Prophylactic Antibiotics: The patient does not require prophylactic antibiotics. Prior Anticoagulants: The patient has taken no previous anticoagulant or antiplatelet agents. ASA Grade Assessment: II - A patient with mild systemic disease. After reviewing the risks and benefits, the patient was deemed in satisfactory condition to undergo the procedure. The anesthesia plan was to use monitored anesthesia care (MAC). Immediately prior to administration of medications, the patient was re-assessed for adequacy to receive sedatives. The heart rate, respiratory rate, oxygen saturations, blood pressure, adequacy of pulmonary ventilation, and response to care were monitored throughout the procedure. The physical status of the patient was re-assessed after the procedure. The Colonoscope was introduced through the anus and advanced to the ileocolonic anastomosis. The colonoscopy was performed without difficulty. The patient tolerated the procedure well. Findings: Non-bleeding internal hemorrhoids were found during retroflexion. The hemorrhoids were mild and Grade I (internal hemorrhoids that do not prolapse). Impression: - Non-bleeding internal hemorrhoids. - No specimens collected. Recommendation: - Patient has a contact number available for emergencies. The signs and symptoms of potential delayed complications were discussed with the patient. Return to normal activities tomorrow. Written discharge instructions were provided to the patient. - Repeat colonoscopy in 1 year for surveillance based on personal history of colon cancer. - Return to my office in 11 months. Procedure Code(s): --- Professional --- G0105, Colorectal cancer screening; colonoscopy on individual at high risk Diagnosis Code(s): --- Professional --- Z85.038, Personal history of other malignant neoplasm of large intestine K64.0, First degree hemorrhoids CPT copyright 2019 [employer]. All rights reserved. The codes documented in this report are preliminary and upon pharmaceutical officer review may be revised to meet current compliance requirements. Renato Underwood DO 11/06/2020 9:50:08 AM Electronically signed by Renato Underwood DO Number of Addenda: 0 Note Initiated On: 11/06/2020 9:32 AM Estimated Blood Loss: Estimated blood loss: none.
[2020-11-06 10:13] VITALS: BP 129/76
== END 2020-11-06 10:13 | disposition home or self-care (01) ==
LOC: M OPP 07:51
PROVIDERS: ATTEND Surgery
DX: Z85.038 Personal history of other malignant neoplasm of large intestine (principal); Z08 Encounter for follow-up examination after completed treatment for malignant neoplasm; K64.0 First degree hemorrhoids; Z80.0 Family history of malignant neoplasm of digestive organs; E11.9 Type 2 diabetes mellitus without complications; I10 Essential (primary) hypertension; E03.9 Hypothyroidism, unspecified; Z87.891 Personal history of nicotine dependence; Z79.82 Long term (current) use of aspirin; Z79.84 Long term (current) use of oral hypoglycemic drugs; Z79.899 Other long term (current) drug therapy

== ENCOUNTER → 2020-11-15 | Outpatient (CLI) | payer MEDICARE, OTHER ==
[~2020-11-15] MED LIST changes: -NS 1,000 ML IV ONE
[2020-11-15 10:17] LABS: HEMOGLOBIN A1c 7.1 %
[2020-11-15 10:28] LABS: CHOLESTEROL RISK RATIO 2.76 (<5)
[2020-11-15 10:36] LABS: MALB URINE SIEMENS 23.8 MG/L; MAU/CREAT RATIO 16.1 MCG/MG (0.0-30.0)
== END ==
LOC: M WUC 08:03
PROVIDERS: ATTEND Family Medicine
DX: E11.9 Type 2 diabetes mellitus without complications (principal)

== ENCOUNTER → 2020-12-12 | Outpatient (CLI) | payer MEDICARE, OTHER ==
[~2020-12-12] MED LIST changes: +GASTROGRAFIN SOLUTION 30ML (Q9963) As Ordered ONE; +ISOVUE-370 76% 100ML VIAL As Ordered ONE
--- NOTE | 2020-12-12 14:45 | REP ---
INDICATION: COLON CA, SURVEILLANCE. COMPARISON: Comparison CT study December 06, 2019. Comparison PET-CT study December 19, 2019. Comparison chest CT study is also reviewed from December 16, 2018.. TECHNIQUE: Helical scanning is acquired following the intravenous injection of 100 mL of intravenous Isovue 370. FINDINGS: Preliminary digital technical operator radiograph demonstrates a right-sided Yphtop-K-Stfm catheter. There is no evidence of supraclavicular or axillary lymphadenopathy. There are scattered stable mediastinal lymph nodes. No new lymph node or adenopathy seen. There is good opacification of the pulmonary arterial tree and the thoracic aorta. No significant vascular abnormality. No pleural or pericardial effusion is appreciated. There is advanced diffuse fatty infiltration of the liver. Normal adrenal glands are seen. On lung window settings, the previously noted right lower lobe pulmonary nodule is again seen measuring 10 x 13 mm. This appears unchanged from the December 06, 2019 prior study and the exam from 16 Dec 2018. No new pulmonary nodule is appreciated. No mass or infiltrate is seen. IMPRESSION: Stable 10 x 13 mm right lower lobe pulmonary nodule unchanged from December 16, 2018. No other pulmonary nodule seen. No evidence of mass or adenopathy. <Electronically signed by Reza Bright > 12/12/20 [id number]
--- NOTE | 2020-12-12 14:49 | REP ---
INDICATION: COLON CA, SURVEILLANCE. COMPARISON: Comparison PET-CT study December 19, 2019. Comparison CT abdomen pelvis December 06, 2019 and November 22, 2018.. TECHNIQUE: Helical scanning is acquired and 3 mm axial images re-formatted. Coronal and sagittal MPR images are generated. The CT contrast enhancement dose is 100 mL of intravenous Isovue 370. Oral contrast was also administered. FINDINGS: Digital preliminary last cleaner radiograph demonstrates clips in right upper quadrant, a dextroconvex lumbar scoliosis, and a normal bowel gas pattern. There is moderate diffuse fatty infiltration of the liver. The liver is enlarged with a craniocaudal span in the right midclavicular line of 20 cm. This is unchanged. No focal liver mass lesion is appreciated. Gallbladder surgically absent. No abnormality is noted in the spleen. Normal adrenal glands are observed. No abnormality is visible in the pancreas. The kidneys enhance symmetrically and are morphologically intact. No retroperitoneal mass is seen. No adenopathy is seen. No mesenteric mass or adenopathy is observed. Patient is status post right colectomy. Small and large bowel loops are unremarkable in the abdomen and pelvis. No uterine or ovarian abnormality is seen. The urinary bladder is largely empty but unremarkable. No abdominal wall defect is seen. IMPRESSION: No evidence of mass or adenopathy. Status post cholecystectomy and partial right colectomy. Diffuse moderate fatty infiltration of the liver and hepatomegaly again seen. <Electronically signed by Reza Bright > 12/12/20 [id number]
== END ==
LOC: M RAD 11:13
PROVIDERS: ATTEND Internal Medicine Medical Oncology
DX: R91.1 Solitary pulmonary nodule (principal); K76.0 Fatty (change of) liver, not elsewhere classified; R16.0 Hepatomegaly, not elsewhere classified; C18.9 Malignant neoplasm of colon, unspecified; Z90.49 Acquired absence of other specified parts of digestive tract
CPT/HCPCS: 71260; 74177; Q9963; Q9967

== ENCOUNTER → 2021-02-03 | Outpatient (REF) | payer MEDICARE, OTHER ==
[~2021-02-03] MED LIST changes: +COVI100V IM; -GASTROGRAFIN SOLUTION 30ML (Q9963) As Ordered ONE; -ISOVUE-370 76% 100ML VIAL As Ordered ONE; +LIDO1CRE42 TOP; -LIDO2.5C15 TOP
== END ==
LOC: M SFHCLERA 19:03
PROVIDERS: ATTEND Nurse Practitioner Family
DX: R30.0 Dysuria (principal)
CPT/HCPCS: 81002; 82948; 87088; 87186; G0463

== ENCOUNTER → 2021-02-04 | Outpatient (CLI) | payer MEDICARE, OTHER ==
--- NOTE | 2021-02-04 12:55 | REPMRS ---
Patient History The patient states she had a clinical breast exam in February 2020. Family history of breast cancer at age 55 in mother, colorectal cancer at age 86 in father. Benign core biopsy of the left breast. Took hormonal contraceptives for 4 years. No breast complaints today Patient signed the MRS sheet 1st covid vaccine 09/14/20-right arm-Moderna 2nd covid vaccine 10/14/20-right arm Priors on PACS Patient Identification Verified Infusaport X 2 years on right Digital Woman Screen Mammo: February 04, 2021 - Exam #: [id number] Bilateral CC and MLO view(s) were taken. Technologist: Claudette Patel, Technologist Prior study comparison: January 09, 2020, bilateral digital woman screen mammo performed at [facility]. April 15, 2017, bilateral digital mammo screening bilat, performed at [facility]. FINDINGS: There are scattered fibroglandular densities. Screening. Digital screening (2D) mammography was performed bilaterally in the CC and MLO projections. Additionally, breast tomosynthesis (3D mammography) was performed bilaterally in the CC and MLO projections. Todays exam was compared to the prior exam/exams. By history, the patient has no complaints of a palpable breast abnormality or other significant breast complaints. The breasts are unchanged in size and shape. There are no farida-soft tissue densities or spiculated masses. There is no internal architectural distortion.Once again, stable benign appearing calcifications are seen. There are no suspicious farida-calcific clusters. Skin thickening or nipple retraction is not present. IMPRESSION: BI-RADS Category 2- Benign Findings. There is no evidence of malignant alteration of the breasts. Followup examination recommended in one year. The Volpara volumetric breast density category is B, there are scattered areas of fibroglandular densities. This mammogram was read with the assistance of ScalIT,an FDA approved computer aided detection system for mammography. The lifetime Tyrer-Cuzick score is 11.7 % Negative x-ray reports should not delay surgical consultation if a dominant or clinically suspicious mass is present. Not all breast cancers can be identified by mammography. Therefore, we recommend that you continue to perform regular breast self-examination and physical examination and then promptly contact your physician of any concerns or changes. Adenosis and dense breasts may obscure an underlying neoplasm. Assessment: BI-RADS/ACR category 2 mammogram. Benign Findings. Recommendation Routine screening mammogram of both breasts in 1 year. Electronically Signed By: Elijah Ruffin DO 02/04/21 [id number]
== END ==
LOC: M WHC 11:18
PROVIDERS: ATTEND Internal Medicine Medical Oncology
DX: Z12.31 Encounter for screening mammogram for malignant neoplasm of breast (principal); Z80.3 Family history of malignant neoplasm of breast; Z80.8 Family history of malignant neoplasm of other organs or systems

== ENCOUNTER → 2021-03-06 | Outpatient (CLI) | payer MEDICARE, OTHER ==
[2021-03-06 16:35] LABS: ALBUMIN 4.2 GM/DL (3.2-5.2); ALT/SGPT 35 U/L (12-78); BILIRUBIN,DIRECT 0.1 MG/DL (0.0-0.2); BILIRUBIN,TOTAL 0.4 MG/DL (0.2-1.0); IRON (FE) 113 UG/DL (50-170); PERCENT SATURATION 27.6 % (13.2-45.0); TOTAL IRON BINDING CAPACITY 409 UG/DL (250-450); TOTAL PROTEIN 6.8 GM/DL (6.4-8.2)
[2021-03-06 16:48] LABS: INR 0.93; PROTHROMBIN TIME 12.7 SECONDS (12.5-14.3)
[2021-03-06 17:05] LABS: HEPATITIS B SURFACE ANTIGEN NEGATIVE (NEGATIVE)
[2021-03-06 17:33] LABS: HEPATITIS B CORE ANTIBODY IGM NEGATIVE (NEGATIVE); HEPATITIS C VIRUS ABY INDEX 0.1 INDEX (<0.8)
[2021-03-06 17:35] LABS: HEPATITIS A ANTIBODY IGM NEGATIVE (NEGATIVE)
== END ==
LOC: M WUC 11:24
PROVIDERS: ATTEND Internal Medicine Gastroenterology
DX: R16.0 Hepatomegaly, not elsewhere classified (principal)

== ENCOUNTER → 2021-03-20 | Outpatient (CLI) | payer MEDICARE, OTHER ==
--- NOTE | 2021-03-20 11:48 | REP ---
INDICATION: HEPATOMEGALY. COMPARISON: Comparison CT study December 12, 2020.. TECHNIQUE: Complete abdominal sonography. Visceral Doppler assessment. FINDINGS: Scanning through the right upper quadrant of the abdomen demonstrates somewhat hyperechoic liver consistent with some degree of fatty infiltration. The right lobe of the liver appears elongate. No focal liver lesion is seen. The mid views of the pancreas show no abnormality. Normal caliber aorta is seen, 2.6 cm in AP dimension. There is no evidence of ascites. Common bile duct is normal post cholecystectomy at 0.7 cm. Scanning in the left upper quadrant demonstrates a normal size homogeneous spleen, 7.9 cm in greatest dimension. Renal cortical echogenicity pattern is normal bilaterally and contours are smooth. There is no evidence of hydronephrosis, cyst, or mass in either kidney. Right kidney measures 11.6 x 4.6 x 4.0 cm. Left renal dimensions are 10.6 x 5.4 x 4.9 cm. Visceral Doppler evaluation. Main portal vein is not dilated measuring 10 mm in diameter. There is some loss of phasicity in the hepatic vein pulse-wave Doppler tracings. Portal vein velocities are slightly elevated. Main portal vein velocity is recorded at 37 centimeters/second. Right portal vein velocity 34 centimeters/second and left portal vein velocity 36 centimeters/second. Splenic vein velocity centrally is 48 centimeters/second and at the splenic hilus, 31 centimeters/second. Hepatic arterial peak systolic flow velocity is normal at 101 centimeters/second. IMPRESSION: Evidence of fatty infiltration of the liver. Post cholecystectomy. No focal liver lesion. Slightly decreased phasicity in the hepatic veins mildly increased portal vein velocities, normal direction of flow. <Electronically signed by Reza Bright > 03/20/21 [id number]
== END ==
LOC: M RAD 08:22
PROVIDERS: ATTEND Internal Medicine Gastroenterology
DX: R16.0 Hepatomegaly, not elsewhere classified (principal); K76.0 Fatty (change of) liver, not elsewhere classified; Z90.49 Acquired absence of other specified parts of digestive tract

== ENCOUNTER → 2021-04-23 | Outpatient (CLI) | payer MEDICARE, OTHER ==
[2021-04-23 16:19] LABS: HEMOGLOBIN A1c 7.5 %
== END ==
LOC: M WUC 11:21
PROVIDERS: ATTEND Student in an Organized Health Care Education/Training Program
DX: E11.9 Type 2 diabetes mellitus without complications (principal)

== ENCOUNTER → 2021-04-30 | Outpatient (REF) | payer MEDICARE, OTHER ==
[2021-04-30 19:09] LABS: AMORPHOUS SEDIMENT SMALL (NEGATIVE); APPEARANCE, URINE CLOUDY (CLEAR); BACTERIA, URINE AUTO 1+ (NEGATIVE); BILIRUBIN, URINE AUTO NEGATIVE (NEGATIVE); BLOOD, URINE BLOOD NEGATIVE (NEGATIVE); CALCIUM OXALATE CRYSTALS SMALL; COLOR, URINE YELLOW (YELLOW); GLUCOSE, URINE (UA) AUTO 3+ mg/dL (NEGATIVE); KETONE, URINE AUTO NEGATIVE (NEGATIVE); LEUKOCYTE ESTERASE, URINE AUTO 1+ (NEGATIVE); MUCUS, URINE SMALL (NEGATIVE); NITRITE, URINE AUTO NEGATIVE (NEGATIVE); PROTEIN, URINE AUTO 1+ mg/dL (NEGATIVE); RBC, URINE AUTO 5 /HPF (0-3); SPECIFIC GRAVITY URINE AUTO 1.023 (1.002-1.035); SQUAMOUS EPITHELIAL CELL UR AU 2 /HPF (0-6); UROBILINOGEN, URINE AUTO 0.2 mg/dL (0.0-2.0); WBC, URINE AUTO 81 /HPF (0-3)
== END ==
LOC: M SFHCLERA 18:48
PROVIDERS: ATTEND Student in an Organized Health Care Education/Training Program
DX: N39.0 Urinary tract infection, site not specified (principal)
CPT/HCPCS: 81001; 87088; 87186; G0463

== ENCOUNTER → 2021-07-23 | Outpatient (CLI) | payer MEDICARE, OTHER ==
[2021-07-23 17:03] LABS: FREE T4 1.38 NG/DL (0.76-1.46); THYROID STIMULATING HORMONE 0.39 uIU/ML (0.358-3.740)
[2021-07-23 17:05] LABS: HEMOGLOBIN A1c 7.1 %
== END ==
LOC: M WUC 10:49
PROVIDERS: ATTEND Student in an Organized Health Care Education/Training Program
DX: E03.9 Hypothyroidism, unspecified (principal); E11.9 Type 2 diabetes mellitus without complications

== ENCOUNTER → 2021-10-04 | Outpatient (CLI) | payer MEDICARE, OTHER ==
[~2021-10-04] MED LIST changes: -LISI-898 PO; +LISI5TAB11 PO; -PROC10TA4 PO; +PROC10TA5 PO
== END ==
LOC: M LABSMTC 09:14
PROVIDERS: ATTEND Anesthesiology
DX: Z01.818 Encounter for other preprocedural examination (principal); Z11.52 Encounter for screening for COVID-19

== ENCOUNTER 2021-10-08 07:09 | Day surgery (SDC) | payer MEDICARE, OTHER ==
[~2021-10-08] VITALS: Ht 160 cm; Wt 57.2 kg
[~2021-10-08 07:09] MED LIST changes: +NS 1,000 ML IV ONE
[2021-10-08] MEDS ORDERED: propofoL 200 MG/20 ML VIAL As Ordered ONE (07:10)
[2021-10-08] MEDS ORDERED: LIDOCAINE 2% 100MG/5ML SDV (FOR ANES.) As Ordered ONE (07:10)
[2021-10-08 08:57] VITALS: BP 154/74
== END 2021-10-08 09:05 | disposition home or self-care (01) ==
LOC: M OPP 07:09
PROVIDERS: ATTEND Surgery
DX: K63.5 Polyp of colon (principal); K64.1 Second degree hemorrhoids; Z85.038 Personal history of other malignant neoplasm of large intestine; Z80.0 Family history of malignant neoplasm of digestive organs; Z79.82 Long term (current) use of aspirin; Z79.84 Long term (current) use of oral hypoglycemic drugs; Z79.899 Other long term (current) drug therapy; Z88.5 Allergy status to narcotic agent; Z87.891 Personal history of nicotine dependence

== ENCOUNTER → 2021-12-17 | Outpatient (CLI) | payer MEDICARE, OTHER ==
[~2021-12-17] MED LIST changes: +GASTROGRAFIN SOLUTION 30ML (Q9963) As Ordered ONE; +ISOVUE-370 76% 100ML VIAL As Ordered ONE; -NS 1,000 ML IV ONE
== END ==
LOC: M RAD 10:55
PROVIDERS: ATTEND Internal Medicine Medical Oncology
DX: R91.1 Solitary pulmonary nodule (principal); K76.0 Fatty (change of) liver, not elsewhere classified; Z85.038 Personal history of other malignant neoplasm of large intestine
CPT/HCPCS: 71260; 74177; Q9963; Q9967

== ENCOUNTER → 2021-12-23 | Outpatient (CLI) | payer MEDICARE, OTHER ==
[~2021-12-23] MED LIST changes: -GASTROGRAFIN SOLUTION 30ML (Q9963) As Ordered ONE; -ISOVUE-370 76% 100ML VIAL As Ordered ONE
[2021-12-23 11:53] LABS: HEMOGLOBIN A1c 7.3 %
== END ==
LOC: M WUC 08:02
PROVIDERS: ATTEND Student in an Organized Health Care Education/Training Program
DX: E11.9 Type 2 diabetes mellitus without complications (principal)

== ENCOUNTER → 2022-01-13 | Outpatient (POV) | payer MEDICARE, OTHER ==
[~2022-01-13] VITALS: Ht 154.9 cm; Wt 57.7 kg
[2022-01-13 11:00] VITALS: BP 161/76
== END ==
LOC: M IRPOV 10:48
PROVIDERS: ATTEND Radiology Diagnostic Radiology
DX: Z45.2 Encounter for adjustment and management of vascular access device (principal); Z88.5 Allergy status to narcotic agent

== ENCOUNTER → 2022-01-25 | Outpatient (CLI) | payer MEDICARE, OTHER | LOC: M LABSMTC 12:13 | PROVIDERS: ATTEND Anesthesiology | DX: Z01.818 Encounter for other preprocedural examination (principal); Z20.822 Contact with and (suspected) exposure to COVID-19 ==

== ENCOUNTER → 2022-01-28 | Outpatient (CLI) | payer MEDICARE, OTHER ==
[~2022-01-28] MED LIST changes: +ACETAMINOPHEN 325 MG TAB As Ordered ONE; +ACETAMINOPHEN TAB 650MG DOSE (2X325MG) PO ONE; +LIDOCAINE 1% MDV 20ML VIAL As Ordered ONE; +MIDAZOLAM INJ 2MG/2ML VIAL (J2250 PER 1MG) As Ordered ONE; +NS 1,000 ML IV SCH; +ceFAZolin 2 GM/D5W 50 ML IV BAG (J0690 PER 500MG) As Ordered ONE; +ceFAZolin SOD 2 GM in IV 1 EA IV ONE; +diphenhydrAMINE 50MG/ML VIAL (J1200) As Ordered ONE; +fentaNYL 100 MCG/2 ML INJECTION As Ordered ONE
[2022-01-28 11:45] VITALS: BP 148/81
== END ==
LOC: M IRPRO 09:16
PROVIDERS: ATTEND Radiology Diagnostic Radiology
DX: Z45.2 Encounter for adjustment and management of vascular access device (principal); C18.9 Malignant neoplasm of colon, unspecified
CPT/HCPCS: 36590; 99152; 99153; J0690; J1644; J2250; J3010

== ENCOUNTER → 2022-02-17 | Outpatient (POV) | payer MEDICARE, OTHER ==
[~2022-02-17] VITALS: Ht 154.9 cm; Wt 57.7 kg
[~2022-02-17] MED LIST changes: -ACETAMINOPHEN 325 MG TAB As Ordered ONE; -ACETAMINOPHEN TAB 650MG DOSE (2X325MG) PO ONE; -LIDOCAINE 1% MDV 20ML VIAL As Ordered ONE; -MIDAZOLAM INJ 2MG/2ML VIAL (J2250 PER 1MG) As Ordered ONE; -NS 1,000 ML IV SCH; -ceFAZolin 2 GM/D5W 50 ML IV BAG (J0690 PER 500MG) As Ordered ONE; -ceFAZolin SOD 2 GM in IV 1 EA IV ONE; -diphenhydrAMINE 50MG/ML VIAL (J1200) As Ordered ONE; -fentaNYL 100 MCG/2 ML INJECTION As Ordered ONE
[2022-02-17 13:50] VITALS: BP 154/70
== END ==
LOC: M IRPOV 13:42
PROVIDERS: ATTEND Radiology Diagnostic Radiology
DX: Z48.812 Encounter for surgical aftercare following surgery on the circulatory system (principal); Z88.5 Allergy status to narcotic agent

== ENCOUNTER → 2022-03-26 | Outpatient (CLI) | payer MEDICARE, OTHER ==
[2022-03-26 14:47] LABS: HEMOGLOBIN A1c 7.4 %
== END ==
LOC: M WUC 08:36
PROVIDERS: ATTEND Student in an Organized Health Care Education/Training Program
DX: E11.9 Type 2 diabetes mellitus without complications (principal)

== ENCOUNTER → 2022-04-14 | Outpatient (POV) | payer MEDICARE, OTHER ==
[~2022-04-14] VITALS: Ht 154.9 cm; Wt 57.7 kg
[2022-04-14 09:10] VITALS: BP 160/78
== END ==
LOC: M IRPOV 08:56
PROVIDERS: ATTEND Radiology Diagnostic Radiology
DX: Z45.2 Encounter for adjustment and management of vascular access device (principal)

== ENCOUNTER → 2022-04-17 | Outpatient (CLI) | payer MEDICARE, OTHER | LOC: M WHC 08:07 | PROVIDERS: ATTEND Student in an Organized Health Care Education/Training Program | DX: R92.8 Other abnormal and inconclusive findings on diagnostic imaging of breast (principal); Z12.31 Encounter for screening mammogram for malignant neoplasm of breast; Z85.038 Personal history of other malignant neoplasm of large intestine; Z92.21 Personal history of antineoplastic chemotherapy ==

== ENCOUNTER → 2022-04-30 | Outpatient (CLI) | payer MEDICARE, OTHER ==
[2022-04-30 11:33] LABS: BLOOD UREA NITROGEN 13 MG/DL (7-18); CALCIUM LEVEL 9.6 MG/DL (8.8-10.2); CARBON DIOXIDE LEVEL 27 MEQ/L (21-32); CHLORIDE LEVEL 107 MEQ/L (98-107); CREATININE FOR GFR 0.76 MG/DL (0.55-1.30); GLOMERULAR FILTRATION RATE > 60.0 (>39); GLUCOSE, FASTING 131 MG/DL (70-100); POTASSIUM SERUM 4.6 MEQ/L (3.5-5.1); SODIUM LEVEL 139 MEQ/L (136-145)
== END ==
LOC: M WUC 08:00
PROVIDERS: ATTEND Student in an Organized Health Care Education/Training Program
DX: Z01.818 Encounter for other preprocedural examination (principal)

== ENCOUNTER → 2022-05-11 | Outpatient (CLI) | payer MEDICARE, OTHER | LOC: M WHC 10:23 | PROVIDERS: ATTEND Student in an Organized Health Care Education/Training Program | DX: N60.01 Solitary cyst of right breast (principal) | CPT/HCPCS: 76642; 77066; G0279 ==

== ENCOUNTER → 2022-06-18 | Outpatient (CLI) | payer MEDICARE, OTHER ==
[2022-06-18 12:55] LABS: MALB URINE SIEMENS 23.9 MG/L; MAU/CREAT RATIO 22.7 MCG/MG (0.0-30.0)
[2022-06-18 13:25] LABS: FOLATE 13.4 NG/ML; TOTAL 25(OH) VITAMIN D 31.2 NG/ML (30.0-100.0)
== END ==
LOC: M WUC 09:00
PROVIDERS: ATTEND Student in an Organized Health Care Education/Training Program
DX: M81.0 Age-related osteoporosis without current pathological fracture (principal); E11.9 Type 2 diabetes mellitus without complications

== ENCOUNTER → 2022-06-19 | Outpatient (CLI) | payer MEDICARE, OTHER | LOC: M RAD 11:36 | PROVIDERS: ATTEND Physician Assistant Medical | DX: M25.472 Effusion, left ankle (principal); M77.32 Calcaneal spur, left foot ==

== ENCOUNTER → 2022-07-13 | Outpatient (CLI) | payer MEDICARE, OTHER ==
[~2022-07-13] MED LIST changes: +[UNRECOGNIZED DRUG - OTHER]
== END ==
LOC: M WUC 08:04
PROVIDERS: ATTEND Student in an Organized Health Care Education/Training Program
DX: E11.9 Type 2 diabetes mellitus without complications (principal)

== ENCOUNTER → 2022-07-28 | Outpatient (REF) | payer MEDICARE, OTHER | LOC: M SFHCLERA 16:52 | PROVIDERS: ATTEND Student in an Organized Health Care Education/Training Program | DX: Z20.822 Contact with and (suspected) exposure to COVID-19 (principal) ==

== ENCOUNTER → 2022-12-21 | Outpatient (CLI) | payer MEDICARE, OTHER ==
[2022-12-21 10:40] LABS: HEMOGLOBIN A1c 6.9 % (4.0-6.0)
[2022-12-21 10:49] LABS: THYROID STIMULATING HORMONE 0.558 uIU/ML (0.55-4.78)
[2022-12-21 10:50] LABS: FREE T4 1.63 NG/DL (0.89-1.76)
== END ==
LOC: M WUC 08:02
PROVIDERS: ATTEND Student in an Organized Health Care Education/Training Program
DX: E03.9 Hypothyroidism, unspecified (principal); E11.9 Type 2 diabetes mellitus without complications

== ENCOUNTER → 2023-01-05 | Outpatient (REF) | payer MEDICARE, OTHER ==
[2023-01-05 10:51] LABS: BASO # 0.1 10^3/uL (0.0-0.2); BASO % 1.3 % (0.0-1.0); EOS # 0.5 10^3/uL (0.0-0.5); HEMATOCRIT 38.6 % (36.0-47.0); HEMOGLOBIN 13.1 g/dl (12.0-15.5); LYMPH # 1.7 10^3/uL (1.5-5.0); LYMPH % 30.5 % (24.0-44.0); MEAN CORPUSCULAR HEMOGLOBIN 31.3 pg (27.0-33.0); MEAN CORPUSCULAR HGB CONC 33.9 g/dl (32.0-36.5); MEAN CORPUSCULAR VOLUME 92.3 fl (80.0-96.0); MONO # 0.6 10^3/uL (0.0-0.8); MONO % 9.8 % (2.0-8.0); NEUTROPHILS # 2.8 10^3/uL (1.5-8.5); NEUTROPHILS % 49.9 % (36.0-66.0); PLATELET COUNT, AUTOMATED 301 10^3/uL (150-450); RED BLOOD COUNT 4.18 10^6/uL (4.00-5.40); WHITE BLOOD COUNT 5.6 10^3/uL (4.0-10.0)
[2023-01-05 11:15] LABS: ALBUMIN 3.9 G/DL (3.2-5.2); ALKALINE PHOSPHATASE 47 U/L (46-116); ALT/SGPT 25 U/L (7.0-40); AST/SGOT 24 U/L (<34); BILIRUBIN,TOTAL 0.6 MG/DL (0.3-1.2); BLOOD UREA NITROGEN 17 MG/DL (9-23); CALCIUM LEVEL 9.1 MG/DL (8.3-10.6); CARBON DIOXIDE LEVEL 29 MMOL/L (20-31); CHLORIDE LEVEL 104 MMOL/L (98-107); CREATININE FOR GFR 0.75 MG/DL (0.55-1.30); GLOMERULAR FILTRATION RATE > 60.0 (>39); GLUCOSE, FASTING 158 MG/DL (74-106); POTASSIUM SERUM 4.2 MMOL/L (3.5-5.1); SODIUM LEVEL 141 MMOL/L (136-145)
== END ==
LOC: M LAB REF 10:06
PROVIDERS: ATTEND Internal Medicine Medical Oncology
DX: C18.9 Malignant neoplasm of colon, unspecified (principal)

== ENCOUNTER → 2023-01-06 | Outpatient (CLI) | payer MEDICARE, OTHER ==
[~2023-01-06] MED LIST changes: +GASTROGRAFIN SOLUTION 30ML As Ordered ONE; +ISOVUE-370 76% 100ML VIAL As Ordered ONE
== END ==
LOC: M RAD 11:24
PROVIDERS: ATTEND Internal Medicine Hematology & Oncology
DX: C18.2 Malignant neoplasm of ascending colon (principal); R91.1 Solitary pulmonary nodule; K76.0 Fatty (change of) liver, not elsewhere classified
CPT/HCPCS: 71260; 74177; Q9963; Q9967

== ENCOUNTER → 2023-03-29 | Outpatient (CLI) | payer MEDICARE, OTHER ==
[~2023-03-29] MED LIST changes: -GASTROGRAFIN SOLUTION 30ML As Ordered ONE; -ISOVUE-370 76% 100ML VIAL As Ordered ONE; -LIDO1CRE42 TOP; +LIDO30CR18 TOP; +NOXI1TAB PO
[2023-03-29 17:21] LABS: HEMOGLOBIN A1c 7.4 % (4.0-6.0)
== END ==
LOC: M WUC 10:08
PROVIDERS: ATTEND Student in an Organized Health Care Education/Training Program
DX: E11.9 Type 2 diabetes mellitus without complications (principal)

== ENCOUNTER → 2023-06-04 | Outpatient (CLI) | payer MEDICARE, OTHER | LOC: M CARPUL 08:25 | PROVIDERS: ATTEND Physician Assistant | DX: R01.1 Cardiac murmur, unspecified (principal); I70.0 Atherosclerosis of aorta; I34.0 Nonrheumatic mitral (valve) insufficiency ==

== ENCOUNTER → 2023-06-24 | Outpatient (CLI) | payer MEDICARE, OTHER | LOC: M SOG 07:51 | PROVIDERS: ATTEND Physician Assistant | DX: M25.522 Pain in left elbow (principal) ==

== ENCOUNTER → 2023-07-14 | Outpatient (CLI) | payer MEDICARE, OTHER ==
[2023-07-14 10:06] LABS: BASO # 0.1 10^3/uL (0.0-0.2); BASO % 1.4 % (0.0-1.0); EOS # 0.4 10^3/uL (0.0-0.5); EOS % 7.4 % (0.0-3.0); HEMATOCRIT 41.3 % (36.0-47.0); HEMOGLOBIN 14.3 g/dl (12.0-15.5); LYMPH # 1.8 10^3/uL (1.5-5.0); MEAN CORPUSCULAR HEMOGLOBIN 31.2 pg (27.0-33.0); MEAN CORPUSCULAR HGB CONC 34.6 g/dl (32.0-36.5); MEAN CORPUSCULAR VOLUME 90.2 fl (80.0-96.0); MONO # 0.6 10^3/uL (0.0-0.8); NEUTROPHILS # 2.6 10^3/uL (1.5-8.5); NEUTROPHILS % 47.5 % (36.0-66.0); PLATELET COUNT, AUTOMATED 315 10^3/uL (150-450); RED BLOOD COUNT 4.58 10^6/uL (4.00-5.40); WHITE BLOOD COUNT 5.5 10^3/uL (4.0-10.0)
[2023-07-14 10:25] LABS: CREATININE, URINE 131.5 MG/DL; MAU/CREAT RATIO 25.8 MCG/MG (0.0-30.0)
[2023-07-14 10:33] LABS: ALBUMIN 4.1 G/DL (3.2-5.2); ALKALINE PHOSPHATASE 54 U/L (46-116); ALT/SGPT 33 U/L (7.0-40); AST/SGOT 35 U/L (<34); BILIRUBIN,TOTAL 0.6 MG/DL (0.3-1.2); BLOOD UREA NITROGEN 13 MG/DL (9-23); CALCIUM LEVEL 9.6 MG/DL (8.3-10.6); CARBON DIOXIDE LEVEL 25 MMOL/L (20-31); CHLORIDE LEVEL 107 MMOL/L (98-107); CHOLESTEROL LEVEL 133 MG/DL (<200); CREATININE FOR GFR 0.69 MG/DL (0.55-1.30); GLOMERULAR FILTRATION RATE > 60.0 (>39); GLUCOSE, FASTING 137 MG/DL (74-106); HDL CHOLESTEROL 49.2 MG/DL (>40); LDL CHOLESTEROL 63.8 MG/DL (<100); NON-HDL-C 83.8 MG/DL; POTASSIUM SERUM 4.2 MMOL/L (3.5-5.1); SODIUM LEVEL 138 MMOL/L (136-145); THYROID STIMULATING HORMONE 0.715 uIU/ML (0.55-4.78); TOTAL PROTEIN 6.7 G/DL (5.7-8.2); TRIGLYCERIDES LEVEL 100 MG/DL (<150)
[2023-07-14 10:50] LABS: HEMOGLOBIN A1c 7.3 % (4.0-6.0)
== END ==
LOC: M WUC 08:12
PROVIDERS: ATTEND Physician Assistant
DX: E11.9 Type 2 diabetes mellitus without complications (principal)

== ENCOUNTER → 2023-12-15 | Outpatient (CLI) | payer MEDICARE, OTHER ==
[~2023-12-15] MED LIST changes: +VITA100093 PO
[2023-12-15 12:11] LABS: BASO # 0.1 10^3/uL (0.0-0.2); BASO % 1.5 % (0.0-1.0); EOS # 0.5 10^3/uL (0.0-0.5); EOS % 7.3 % (0.0-3.0); HEMATOCRIT 41.6 % (36.0-47.0); LYMPH # 2.1 10^3/uL (1.5-5.0); LYMPH % 31.6 % (24.0-44.0); MEAN CORPUSCULAR HEMOGLOBIN 31.5 pg (27.0-33.0); MEAN CORPUSCULAR HGB CONC 33.7 g/dl (32.0-36.5); MEAN CORPUSCULAR VOLUME 93.5 fl (80.0-96.0); MONO # 0.7 10^3/uL (0.0-0.8); MONO % 9.9 % (2.0-8.0); NEUTROPHILS # 3.2 10^3/uL (1.5-8.5); NEUTROPHILS % 49.1 % (36.0-66.0); PLATELET COUNT, AUTOMATED 311 10^3/uL (150-450); RED BLOOD COUNT 4.45 10^6/uL (4.00-5.40); WHITE BLOOD COUNT 6.6 10^3/uL (4.0-10.0)
[2023-12-15 12:23] LABS: HEMOGLOBIN A1c 7.6 % (4.0-6.0)
[2023-12-15 12:43] LABS: ALBUMIN 4.1 G/DL (3.2-5.2); ALKALINE PHOSPHATASE 51 U/L (46-116); ALT/SGPT 34 U/L (7.0-40); AST/SGOT 31 U/L (<34); BILIRUBIN,TOTAL 0.5 MG/DL (0.3-1.2); BLOOD UREA NITROGEN 15 MG/DL (9-23); CALCIUM LEVEL 9.6 MG/DL (8.3-10.6); CARBON DIOXIDE LEVEL 26 MMOL/L (20-31); CHLORIDE LEVEL 105 MMOL/L (98-107); CREATININE FOR GFR 0.73 MG/DL (0.55-1.30); CREATININE, URINE 193.3 MG/DL; GLOMERULAR FILTRATION RATE > 60.0 (>39); GLUCOSE, FASTING 136 MG/DL (74-106); POTASSIUM SERUM 4.2 MMOL/L (3.5-5.1); SODIUM LEVEL 138 MMOL/L (136-145); TOTAL PROTEIN 6.5 G/DL (5.7-8.2)
[2023-12-15 12:44] LABS: MAU/CREAT RATIO 34.6 MCG/MG (0.0-30.0)
== END ==
LOC: M WUC 08:13
PROVIDERS: ATTEND Physician Assistant
DX: E11.9 Type 2 diabetes mellitus without complications (principal)

== ENCOUNTER → 2023-12-21 | Outpatient (CLI) | payer MEDICARE, OTHER ==
[~2023-12-21] MED LIST changes: +GASTROGRAFIN SOLUTION 30ML As Ordered ONE; +ISOVUE-370 76% 100ML VIAL As Ordered ONE; +eye promise PO
== END ==
LOC: M RAD 09:26
PROVIDERS: ATTEND Internal Medicine Medical Oncology
DX: C18.9 Malignant neoplasm of colon, unspecified (principal)
CPT/HCPCS: 71260; 74177; Q9963; Q9967

== ENCOUNTER → 2024-05-09 | Outpatient (REF) | payer MEDICARE, OTHER ==
[~2024-05-09] MED LIST changes: -GASTROGRAFIN SOLUTION 30ML As Ordered ONE; -ISOVUE-370 76% 100ML VIAL As Ordered ONE; +ONDA-284 PO; -ONDA8TAB8 PO
[2024-05-09 17:44] LABS: ALBUMIN 4.1 G/DL (3.2-5.2); ALKALINE PHOSPHATASE 48 U/L (46-116); ALT/SGPT 22 U/L (7.0-40); AST/SGOT 25 U/L (<34); BILIRUBIN,TOTAL 0.6 MG/DL (0.3-1.2); BLOOD UREA NITROGEN 16 MG/DL (9-23); CALCIUM LEVEL 10.6 MG/DL (8.3-10.6); CARBON DIOXIDE LEVEL 26 MMOL/L (20-31); CHLORIDE LEVEL 106 MMOL/L (98-107); CREATININE FOR GFR 0.69 MG/DL (0.55-1.30); GLOMERULAR FILTRATION RATE > 60.0 (>39); GLUCOSE, FASTING 199 MG/DL (74-106); POTASSIUM SERUM 4.3 MMOL/L (3.5-5.1); SODIUM LEVEL 138 MMOL/L (136-145); TOTAL PROTEIN 6.8 G/DL (5.7-8.2)
== END ==
LOC: M SFHCLERA 09:46
PROVIDERS: ATTEND Family Medicine
DX: E11.9 Type 2 diabetes mellitus without complications (principal)

== ENCOUNTER → 2024-05-30 | Outpatient (CLI) | payer MEDICARE, OTHER | LOC: M WHC 09:50 | PROVIDERS: ATTEND Family Medicine | DX: Z12.31 Encounter for screening mammogram for malignant neoplasm of breast (principal); R92.313 Mammographic fatty tissue density, bilateral breasts ==

== ENCOUNTER → 2024-06-06 | Outpatient (CLI) | payer MEDICARE | LOC: M LRY 07:58 | PROVIDERS: ATTEND Nurse Practitioner Family | DX: M81.0 Age-related osteoporosis without current pathological fracture (principal) ==

== ENCOUNTER → 2024-08-24 | Outpatient (CLI) | payer MEDICARE, OTHER ==
[2024-08-24 14:43] LABS: BLOOD UREA NITROGEN 15 MG/DL (9-23); CALCIUM LEVEL 10.1 MG/DL (8.3-10.6); CARBON DIOXIDE LEVEL 28 MMOL/L (20-31); CHLORIDE LEVEL 106 MMOL/L (98-107); CREATININE FOR GFR 0.68 MG/DL (0.55-1.30); GLOMERULAR FILTRATION RATE > 60.0 (>39); GLUCOSE, FASTING 143 MG/DL (74-106); POTASSIUM SERUM 4.6 MMOL/L (3.5-5.1); SODIUM LEVEL 142 MMOL/L (136-145)
== END ==
LOC: M WUC 09:44
PROVIDERS: ATTEND Nurse Practitioner Family
DX: M81.0 Age-related osteoporosis without current pathological fracture (principal)

== ENCOUNTER → 2024-09-01 | Outpatient (CLI) | payer MEDICARE, OTHER ==
[2024-09-01 11:43] LABS: HEMATOCRIT 40.9 % (36.0-47.0); HEMOGLOBIN 13.4 g/dl (12.0-15.5); MEAN CORPUSCULAR HEMOGLOBIN 30.9 pg (27.0-33.0); MEAN CORPUSCULAR HGB CONC 32.8 g/dl (32.0-36.5); MEAN CORPUSCULAR VOLUME 94.5 fl (80.0-96.0); PLATELET COUNT, AUTOMATED 349 10^3/uL (150-450); RED BLOOD COUNT 4.33 10^6/uL (4.00-5.40); WHITE BLOOD COUNT 6.6 10^3/uL (4.0-10.0)
[2024-09-01 13:43] LABS: ALBUMIN 4.2 G/DL (3.2-5.2); ALKALINE PHOSPHATASE 37 U/L (35-104); ALT/SGPT 17 U/L (7.0-40); AST/SGOT 21 U/L (<34); BILIRUBIN,TOTAL 0.5 MG/DL (0.3-1.2); BLOOD UREA NITROGEN 18 MG/DL (9-23); CALCIUM LEVEL 9.9 MG/DL (8.3-10.6); CARBON DIOXIDE LEVEL 30 MMOL/L (20-31); CHLORIDE LEVEL 104 MMOL/L (98-107); CHOLESTEROL LEVEL 197 MG/DL (<200); CHOLESTEROL RISK RATIO 3.21 (<5); CREATININE FOR GFR 0.73 MG/DL (0.55-1.30); GLOMERULAR FILTRATION RATE > 60.0 (>39); GLUCOSE, FASTING 125 MG/DL (74-106); HDL CHOLESTEROL 61.3 MG/DL (>40); LDL CHOLESTEROL 113.5 MG/DL (<100); NON-HDL-C 135.7 MG/DL; POTASSIUM SERUM 4.5 MMOL/L (3.5-5.1); SODIUM LEVEL 145 MMOL/L (136-145); TOTAL PROTEIN 7.2 G/DL (5.7-8.2); TRIGLYCERIDES LEVEL 111 MG/DL (<150)
== END ==
LOC: M WUC 08:01
PROVIDERS: ATTEND Physician Assistant
DX: E78.2 Mixed hyperlipidemia (principal); I34.0 Nonrheumatic mitral (valve) insufficiency

== ENCOUNTER → 2024-09-15 | Outpatient (CLI) | payer MEDICARE, OTHER ==
[2024-09-15 08:20] LABS: HEMATOCRIT 42.2 % (36.0-47.0); HEMOGLOBIN 14.1 g/dl (12.0-15.5); MEAN CORPUSCULAR HGB CONC 33.4 g/dl (32.0-36.5); MEAN CORPUSCULAR VOLUME 92.7 fl (80.0-96.0); PLATELET COUNT, AUTOMATED 325 10^3/uL (150-450); RED BLOOD COUNT 4.55 10^6/uL (4.00-5.40); WHITE BLOOD COUNT 5.5 10^3/uL (4.0-10.0)
[2024-09-15 08:58] LABS: ALKALINE PHOSPHATASE 37 U/L (35-104); ALT/SGPT 18 U/L (7.0-40); AST/SGOT 21 U/L (<34); BILIRUBIN,TOTAL 0.7 MG/DL (0.3-1.2); BLOOD UREA NITROGEN 14 MG/DL (9-23); CALCIUM LEVEL 10.1 MG/DL (8.3-10.6); CARBON DIOXIDE LEVEL 28 MMOL/L (20-31); CHLORIDE LEVEL 107 MMOL/L (98-107); CHOLESTEROL LEVEL 147 MG/DL (<200); CHOLESTEROL RISK RATIO 2.63 (<5); CREATININE FOR GFR 0.73 MG/DL (0.55-1.30); GLOMERULAR FILTRATION RATE > 60.0 (>39); GLUCOSE, FASTING 122 MG/DL (74-106); HDL CHOLESTEROL 55.8 MG/DL (>40); LDL CHOLESTEROL 71.4 MG/DL (<100); NON-HDL-C 91.2 MG/DL; POTASSIUM SERUM 4.5 MMOL/L (3.5-5.1); SODIUM LEVEL 144 MMOL/L (136-145); TOTAL PROTEIN 6.8 G/DL (5.7-8.2); TRIGLYCERIDES LEVEL 99 MG/DL (<150)
== END ==
LOC: M LAB 07:37
PROVIDERS: ATTEND Physician Assistant
DX: I34.0 Nonrheumatic mitral (valve) insufficiency (principal); E78.2 Mixed hyperlipidemia

== ENCOUNTER → 2024-10-20 | Outpatient (CLI) | payer MEDICARE, OTHER ==
[2024-10-20 14:27] LABS: ALKALINE PHOSPHATASE 38 U/L (35-104); ALT/SGPT 23 U/L (7.0-40); AST/SGOT 24 U/L (<34); BILIRUBIN,TOTAL 0.3 MG/DL (0.3-1.2); BLOOD UREA NITROGEN 17 MG/DL (9-23); CALCIUM LEVEL 10.1 MG/DL (8.3-10.6); CARBON DIOXIDE LEVEL 27 MMOL/L (20-31); CHLORIDE LEVEL 105 MMOL/L (98-107); CREATININE FOR GFR 0.68 MG/DL (0.55-1.30); GLOMERULAR FILTRATION RATE > 60.0 (>39); GLUCOSE, FASTING 146 MG/DL (74-106); POTASSIUM SERUM 4.3 MMOL/L (3.5-5.1); SODIUM LEVEL 143 MMOL/L (136-145); TOTAL PROTEIN 6.7 G/DL (5.7-8.2)
[2024-10-20 14:28] LABS: THYROID STIMULATING HORMONE 0.597 uIU/ML (0.55-4.78)
[2024-10-20 14:40] LABS: HEMOGLOBIN A1c 7.2 % (4.0-6.0)
[2024-10-20 14:46] LABS: CREATININE, URINE 74.8 MG/DL; MAU/CREAT RATIO 30.7 MCG/MG (0.0-30.0)
== END ==
LOC: M WUC 08:25
PROVIDERS: ATTEND Family Medicine
DX: Z00.00 Encounter for general adult medical examination without abnormal findings (principal); E11.9 Type 2 diabetes mellitus without complications; E03.9 Hypothyroidism, unspecified

== ENCOUNTER → 2024-11-16 | Outpatient (CLI) | payer MEDICARE, OTHER | LOC: M CARPUL 10:04 | PROVIDERS: ATTEND Physician Assistant | DX: I34.0 Nonrheumatic mitral (valve) insufficiency (principal) ==

== ENCOUNTER 2024-12-13 12:23 | Day surgery (SDC) | payer MEDICARE, OTHER ==
[~2024-12-13] VITALS: Ht 154.9 cm; Wt 57.2 kg
[~2024-12-13 12:23] MED LIST changes: +BIOT1CAP2 PO; +LEVO88TA3 PO
[2024-12-13] MEDS ORDERED: propofoL 200 MG/20 ML VIAL As Ordered ONE (13:16)
[2024-12-13 13:53] VITALS: TEMP 97.1
[2024-12-13 14:15] VITALS: BP 136/73; O2SAT 96
== END 2024-12-13 14:25 | disposition home or self-care (01) ==
LOC: M OPP 12:23
PROVIDERS: ATTEND Surgery
DX: Z12.11 Encounter for screening for malignant neoplasm of colon (principal); K57.30 Diverticulosis of large intestine without perforation or abscess without bleeding; K64.0 First degree hemorrhoids; Z85.038 Personal history of other malignant neoplasm of large intestine; Z90.49 Acquired absence of other specified parts of digestive tract; E11.9 Type 2 diabetes mellitus without complications; I10 Essential (primary) hypertension; E03.9 Hypothyroidism, unspecified; E78.00 Pure hypercholesterolemia, unspecified; Z79.899 Other long term (current) drug therapy; Z79.890 Hormone replacement therapy; Z79.84 Long term (current) use of oral hypoglycemic drugs; Z79.82 Long term (current) use of aspirin; Z92.21 Personal history of antineoplastic chemotherapy; Z90.89 Acquired absence of other organs; Z87.891 Personal history of nicotine dependence; Z88.5 Allergy status to narcotic agent

== ENCOUNTER → 2024-12-20 | Outpatient (REF) | payer MEDICARE, OTHER | LOC: M SFHCLERA 16:57 | DX: R05.1 Acute cough (principal) ==

== ENCOUNTER → 2025-05-14 | Outpatient (CLI) | payer MEDICARE, OTHER ==
[~2025-05-14] MED LIST changes: +THERTAB52 PO
[2025-05-14 10:06] LABS: CALCIUM LEVEL 10.0 MG/DL (8.3-10.6); CARBON DIOXIDE LEVEL 29.0 MMOL/L (20-31); CHLORIDE LEVEL 102.0 MMOL/L (98-107); CREATININE FOR GFR 0.71 MG/DL (0.55-1.30); GLOMERULAR FILTRATION RATE 89.2 (>39); POTASSIUM SERUM 4.3 MMOL/L (3.5-5.1); SODIUM LEVEL 140.0 MMOL/L (136-145)
[2025-05-14 10:08] LABS: TOTAL 25(OH) VITAMIN D 40.1 NG/ML (20.0-100.0)
== END ==
LOC: M LAB 07:46
PROVIDERS: ATTEND Nurse Practitioner Family
DX: M81.0 Age-related osteoporosis without current pathological fracture (principal)

== ENCOUNTER → 2025-05-31 | Outpatient (CLI) | payer MEDICARE, OTHER | LOC: M WHC 10:52 | PROVIDERS: ATTEND Family Medicine | DX: Z12.31 Encounter for screening mammogram for malignant neoplasm of breast (principal); M85.80 Other specified disorders of bone density and structure, unspecified site; M81.0 Age-related osteoporosis without current pathological fracture ==

== ENCOUNTER → 2025-06-01 | Outpatient (CLI) | payer MEDICARE, OTHER ==
[2025-06-01 09:34] LABS: CALCIUM LEVEL 10.2 MG/DL (8.3-10.6); CARBON DIOXIDE LEVEL 24.0 MMOL/L (20-31); CHLORIDE LEVEL 106.0 MMOL/L (98-107); CREATININE FOR GFR 0.73 MG/DL (0.55-1.30); GLOMERULAR FILTRATION RATE 86.2 (>39); POTASSIUM SERUM 4.2 MMOL/L (3.5-5.1); SODIUM LEVEL 143.0 MMOL/L (136-145)
== END ==
LOC: M LAB 08:10
PROVIDERS: ATTEND Nurse Practitioner Family
DX: M81.0 Age-related osteoporosis without current pathological fracture (principal)